=== PATIENT | male | born 1940 | race Caucasian/White ===

== ENCOUNTER → 2024-10-22 | Outpatient (CLI) | payer MEDICARE, SELFPAY ==
--- NOTE | 2024-10-22 08:45 | AAVD_ITS ---
Reason For Study Reason For Study: ILIAC ARTERY ANEURYSM Aorta Measurements Aorta Doppler Measurements Proximal aorta measures2.13 x 2.09cm. in cross-sectional Peak systolic flow velocities within the proximal aorta axis. measure 128.5 cm/sec. Proximal aorta measures2.12cm. in longitudinal axis. Peak systolic flow velocities within the mid aorta measure Mid aorta measures2.34 x 2.62cm. in cross-sectional axis. 81.4 cm/sec. Mid aorta measures2.34cm. in longitudinal axis. Peak systolic flow velocities within the distal aorta Distal aorta measures3.05 x 3.19cm. in cross-sectional axis.measure 77.2 cm/sec. Distal aorta measures3.3cm. in longitudinal axis. Left Iliac Artery Left iliac artery measures 1.31 cm. in the longitudinal axis. Peak systolic velocity in the left iliac artery measures 112.2 cm/sec. Left iliac artery measures 1.52 x 1.17 cm. in the cross-sectional axis. Right Iliac Artery Right iliac artery measures 1.40 cm. in the longitudinal axis. Right iliac artery measures 1.20 x 1.07 cm. in the cross- sectional axis. Peak systolic velocity in the right iliac artery measures 114.0 cm/sec. Procedure Aorta IVC Iliac vasculature or bypass grafts 47345. Technically difficult study. Exam performed in department. 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 Left iliac artery patent, 1.52 cm ectasia present Ordering Physician: Leslie Rabago Referring Physician: Leslie Rabago Performed By: Elsa Jefferson, JUDY, RVT
--- OUTSIDE RECORDS SUMMARY | 2024-10-22 10:30 | XMS RPT_ITS | CCD ---
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 Name Role Phone Free, Text Entry Unavailable Unavailable Olivier Sutton Unavailable BILL CADE MD Primary Care Unavailable LATOUF, BILL TALLEY Admitting Unavailable LATOUF, BILL TALLEY Attending Unavailable LATOUF, BILL TALLEY Consulting Unavailable PROVIDER, UNKNOWN Consulting Unavailable PROVIDER, UNKNOWN Consulting Unavailable PROVIDER, UNKNOWN Consulting Unavailable LATOUF, BILL TALLEY Primary Care Unavailable LATOUF, BILL TALLEY Admitting Unavailable LATOUF, BILL TALLEY Attending Unavailable LATOUF, BILL TALLEY Consulting Unavailable PROVIDER, UNKNOWN Consulting Unavailable PROVIDER, UNKNOWN Consulting Unavailable PROVIDER, UNKNOWN Consulting Unavailable LATOUF, BILL TALLEY Primary Care Unavailable LATOUF, BILL TALLEY Admitting Unavailable LATOUF, BILL TALLEY Attending Unavailable LATOUF, BILL TALLEY Consulting Unavailable PROVIDER, UNKNOWN Consulting Unavailable PROVIDER, UNKNOWN Consulting Unavailable PROVIDER, UNKNOWN Consulting Unavailable LATOUF, BILL TALLEY Primary Care Unavailable LATOUF, BILL TALLEY Admitting Unavailable LATOUF, BILL TALLEY Attending Unavailable LATOUF, BILL TALLEY Consulting Unavailable PROVIDER, UNKNOWN Consulting Unavailable PROVIDER, UNKNOWN Consulting Unavailable PROVIDER, UNKNOWN Consulting Unavailable LATOUPayam, BILL TALLEY Consulting Unavailable LATOUF, BILL TALLEY Primary Care Unavailable LATOUF, BILL TALLEY Admitting Unavailable LATOUF, BILL TALLEY Attending Unavailable PROVIDER, UNKNOWN Consulting Unavailable PROVIDER, UNKNOWN Consulting Unavailable PROVIDER, UNKNOWN Consulting Unavailable Leslie Rabago Attending Unavailable Valente, Jaquan Chi Primary Care Unavailable Valente, Jaquan Chi Referring Unavailable Gem Leslie Referring Unavailable NOT, DEFINED Primary Care Unavailable Leslie Rabago Attending Unavailable Medications Current Medications Medication Drug Class(es) Dates Sig (Normalized) Sig (Original) amoxicillin 875 mg / clavulanate 125 mg oral tablet (1 source) Penicillin-class Antibacterial Start: 04-10-2021 End: 04-19-2021 take 1 tablet by mouth twice daily at mealtime amoxicillin-clavu lanate 875 mg-125 mg oral tablet ; 875 milligram(s) orally 2 times a day Quantity: 20 Refills: 0 Ordered: 10-Apr-2021 Olivier Sutton Start: 10-Apr-2021 End: 19-Apr-2021 Generic Substitution Allowed Comments: Finish all this medication unless otherwise directed by prescriber.Take with food or milk. Comment on above: Finish all this medi cation unless otherwise directed by prescriber.Take with food or milk. benzonatate 100 mg oral capsule (1 source) Non-narcotic Antitussive Start: 04-10-2021 End: 04-19-2021 take 1 capsule by mouth three times daily benzonatate 100 mg oral capsule ; 1 cap(s) orally 3 times a day Quantity: 30 Refills: 0 Ordered: 10-Apr-2021 Olivier Sutton Start: 10-Apr-2021 End: 19-Apr-2021 Generic Substitution Allowed Comments: May cause drowsiness. Alcohol may intensify this effect. Use care when operating dangerous machinery.Swallow whole. Do not crush. Comment on above: May cause drowsiness . Alcohol may intensify this effect. Use care when operating dangerous machinery.Swallow whole. Do not crush. docusate sodium 100 mg oral capsule (1 source) docusate potassium 100 mg oral capsule Quantity: 0 Refills: 0 Ordered: 10-Apr-2021 Galdino, Susan Generic Substitution Allowed lisinopril 10 mg oral tablet (1 source) Angiotensin Converting Enzyme Inhibitor take 1 tablet by mouth once daily lisinopril 10 mg oral tablet ; 1 tab(s) orally once a day Quantity: 0 Refills: 0 Ordered: 10-Apr-2021 Galdino, Susan Generic Substitution Allowed loratadine 10 mg oral tablet (1 source) take 1 tablet by mouth once daily loratadine 10 mg oral tablet ; tab(s) orally once a day Quantity: 0 Refills: 0 Ordered: 10-Apr-2021 Galdino, Susan Generic Substitution Allowed 24 hr NIFEdipine 60 mg extended release oral tablet (1 source) Dihydropyridine Calcium Channel Steve take 1 tablet by mouth once daily NIFEdipine 60 mg oral tablet, extended release ; 1 tab(s) orally once a day Quantity: 0 Refills: 0 Ordered: 10-Apr-2021 Galdino, Susan Generic Substitution Allowed pantoprazole 20 mg delayed release oral tablet (1 source) Proton Pump Inhibitor take 1 tablet by mouth once daily pantoprazole 20 mg oral delayed release tablet ; 1 tab(s) orally once a day Quantity: 0 Refills: 0 Ordered: 10-Apr-2021 Susan Ahmadi Generic Substitution Allowed pravastatin sodium 40 mg oral tablet (1 source) HMG-CoA Reductase Inhibitor take 1 tablet by mouth once daily pravastatin 40 mg oral tablet ; 1 tab(s) orally once a day Quantity: 0 Refills: 0 Ordered: 10-Apr-2021 Susan Ahmadi Generic Substitution Allowed Problems Active Problems Problem Classification Problem Date Documented Da te Episodic/Chronic Anxiety disorders (1 source) Anxiety disorder, unspecified; Translations: [Anxiety disorder, unspecified] Onset: 12-01-2023 Chronic Aortic; peripheral; and visceral artery aneurysms (1 source) Aneurysm of iliac artery; 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] Onset: 10-16-2024 Chronic Asthma (1 source) Unspecified asthma, uncomplicated; Translations: [Unspecified asthma, uncomplicated] Onset: 12-01-2023 Chronic Chronic kidney disease (1 source) Chronic kidney disease; Translations: [Chronic kidney disease, stage 3a] Onset: 09-09-2024 Diabetes mellitus without complication (4 sources) Hyperglycemia, unspecified; Translations: [Hyperglycemia, unspecified] Onset: 05-27-2024 Episodic Diseases of white blood cells (3 sources) Elevated white blood cell count, unspecified; Translations: [Elevated white blood cell count, unspecified] Onset: 12-01-2023 Chronic Disorders of lipid metabolism (1 source) Pure hypercholesterolemi a, unspecified; Translations: [Pure hypercholesterolemi a, unspecified] Onset: 09-09-2024 Chronic Essential hypertension (4 sources) Essential (primary) hypertension; Translations: [Essential (primary) hypertension] Onset: 12-01-2023 Chronic Other hereditary and degenerative nervous system conditions (1 source) Essential tremor; Translations: [Essential tremor] Onset: 12-01-2023 Chronic Other lower respiratory disease (2 sources) Cough 04-10-2021 Episodic Comment on above: COUGH Other upper respiratory infections (2 sources) Acute upper respiratory infection; Translations: [Acute upper respiratory infections of unspecified site] 04-10-2021 Episodic Past or Other Problems Problem Classification Problem Date Documented Da te Episodic/Chronic Genitourinary symptoms and ill-defined conditions (1 source) Nocturia; Translations: [Nocturia] Onset: 12-01-2023 Episodic Results Test Name Value Interpretation Reference Range Facil ity BMP with eGFRon 08-16-2024 AGE 84 years Normal [facility] Comment on above: Performed By: #### 2 [id number] #### [facility],[address] [place] [address] 49529 Anion gap [Moles/Vol] 11 mmol/L Normal 10 - 20 [facility] Comment on above: Performed By: #### 2 [id number] #### [facility],[address] [place] [address] 72083 BMP with eGFR Normal [facility] Comment on above: Result Comment: BASI C METABOLIC PANEL Performed By: #### 2 [id number] #### [facility],[address] [place] [address] 74542 Calcium [Mass/Vol] 9.0 mg/dL Normal 8.5 - 10.1 [facility] Comment on above: Performed By: #### 2 75539 #### [facility],[address] [place] [address] 32529 Chloride [Moles/Vol] 108 mmol/L High 98 - 107 [facility] Comment on above: Performed By: #### 2 52062 #### [facility],[address] [place] [address] 03983 CO2 [Moles/Vol] 30.3 mmol/L Normal 21.0 - 32.0 [facility] Comment on above: Performed By: #### 2 47892 #### [facility],[address] [place] [address] 03184 Creatinine [Mass/Vol] 1.33 mg/dL High 0.70 - 1.30 [facility] Comment on above: Performed By: #### 2 18588 #### [facility],[address] [place] [address] 13749 eGFR 51 ML/MINUTE Low 60 - 999 [facility] Comment on above: Performed By: #### 2 08363 #### [facility],[address] [place] [address] 40442 GFR/1.73 sq M.predicted among non-blacks MDRD (S/P/Bld) [Vol rate/Area] mL/min/{1.73_m2} Normal 60 - 999 [facility] Comment on above: Result Comment: ACCO RDING TO THE NATIONAL KIDNEY DISEASE EDUCATION PROGRAM(NKDE), A NORMAL eGFR IS A VALUE GREATER THAN OR EQUAL TO 60 ML/MIN/1.73 SQ METERS. CHRONIC KIDNEY DISEASE: <60mL/MIN/1.73 SQ METERS KIDNEY FAILURE: <15mL/MIN/1.73 SQ METERS THIS TEST SHOULD ONLY BE USED FOR PATIENTS 18 YEARS OF AGE AND OLDER. Performed By: #### 2 53632 #### [facility],[address] [place] [address] 62643 Glucose [Mass/Vol] 99 mg/dL Normal 74 - 106 [facility] Comment on above: Performed By: #### 2 18256 #### [facility],[address] [place] [address] 36550 Potassium [Moles/Vol] 4.2 mmol/L Normal 3.5 - 5.1 [facility] Comment on above: Performed By: #### 2 12736 #### [facility],[address] [place] [address] 30872 Sodium [Moles/Vol] 145 mmol/L Normal 136 - 145 [facility] Comment on above: Performed By: #### 2 02349 #### [facility],[address] [place] [address] 69720 Urea nitrogen [Mass/Vol] 21 mg/dL High 7 - 18 [facility] Comment on above: Performed By: #### 2 45986 #### [facility],[address] [place] [address] 95320 HEMOGLOBIN A1C (POM)on 08-16 Glucose [Mass/Vol] 119.8 mg/dL High 0.0 - 0.0 [facility] Comment on above: Result Comment: BLDo HEMOGLOBIN A1C REFERENCE RANGESBLDo Suggested Diagnosis HbA1c(%) HbA1C (mmol/mol Diabetic >/=6.5 >/=48 Prediabetes 5.7 - 6.4 39 - 47 Normal <5.7 <39 Performed By: #### 2 78965 #### [facility],[address] [place] [address] HbA1c (Bld) [Mass fraction] 5.8 % Normal 0.0 - 6.5 [facility] Comment on above: Performed By: #### 2 24561 #### [facility],[address] [place] [address] CBC + DIFFon 05-27-2024 Baso # 0.03 x10EE3/UL Normal 0.00 - 0.10 [facility] Comment on above: Performed By: #### 2 02698 #### [facility],[address] [place] [address] Basophils/100 WBC (Bld) 0.3 % Normal 0.0 - 2.0 [facility] Comment on above: Performed By: #### 2 16143 #### [facility],[address] [place] [address] CBC + DIFF Normal [facility] Comment on above: Result Comment: CBC- COMPLETE BLOOD COUNT Performed By: #### 2 22762 #### [facility],[address] [place] [address] EO # 0.81 x10EE3/UL High 0.00 - 0.50 [facility] Comment on above: Performed By: #### 2 70413 #### [facility],[address] [place] [address] 58744 Eosinophils/100 WBC (Bld) 8.9 % High 0.0 - 7.0 [facility] Comment on above: Performed By: #### 2 31376 #### [facility],[address] [place], [place] [address] Erythrocyte distribution width (RBC) [Ratio] 13.1 % Normal 12.0 - 15.6 [facility] Comment on above: Performed By: #### 2 71280 #### [facility],[address] [place] [address] Hematocrit (Bld) [Volume fraction] 50.7 % Normal 40.0 - 52.0 [facility] Comment on above: Performed By: #### 2 76136 #### [facility],[address] [place] [address] Hemoglobin (Bld) [Mass/Vol] 17.1 g/dL Normal 13.0 - 17.5 [facility] Comment on above: Performed By: #### 2 85780 #### [facility],[address] [place] [address] Lymph # 3.79 x10EE3/UL High 0.80 - 2.80 [facility] Comment on above: Performed By: #### 2 79124 #### [facility],[address] [place], [place] [address] Lymphocytes/100 WBC (Bld) 41.4 % Normal 20.0 - 45.0 [facility] Comment on above: Performed By: #### 2 90976 #### [facility],[address] [place], [place] [id number] MANUAL DIFF N/A Normal [facility] Comment on above: Performed By: #### 2 81872 #### [facility],[address] [place] [address] 20242 MCH (RBC) [Entitic mass] 32 pg Normal 27 - 33 [facility] Comment on above: Performed By: #### 2 06532 #### [facility],[address] [place] [address] 57242 MCHC 34 X10 3 Normal 32 - 36 [facility] Comment on above: Performed By: #### 2 56487 #### [facility],[address] [place] [address] 26317 MCV (RBC) [Entitic vol] 94 fL Normal 81 - 98 [facility] Comment on above: Performed By: #### 2 88605 #### [facility],[address] [place] [address] 40452 Ida # 0.86 x10EE3/UL Normal 0.20 - 1.00 [facility] Comment on above: Performed By: #### 2 24866 #### [facility],[address] [place] [address] 10125 MONOS % 9.4 % Normal 0.0 - 10.0 [facility] Comment on above: Performed By: #### 2 62830 #### [facility],[address] [place] [address] 02136 Morphology Alvaro (Bld) [Interp] N/A Normal [facility] Comment on above: Performed By: #### 2 04437 #### [facility],[address] [place] [address] 45241 Neut # 3.66 x10EE3/UL Normal 1.50 - 7.10 [facility] Comment on above: Performed By: #### 2 54284 #### [facility],[address] [place] [address] 63384 Neutrophils/100 WBC (Bld) 40.0 % Low 46.0 - 76.0 [facility] Comment on above: Performed By: #### 2 94819 #### [facility],[address] [place] [address] 29421 PLATELET 314 x10EE3/UL Normal 150 - 450 [facility] Comment on above: Performed By: #### 2 28148 #### [facility],[address] [place] [address] 61765 Platelet mean volume (Bld) [Entitic vol] 8.0 fL Normal 6.4 - 10.5 [facility] Comment on above: Result Comment: AUTO MATED DIFFERENTIAL Performed By: #### 2 26229 #### [facility],[address] [place] [address] 40082 RBC 5.38 x 10EE6/UL Normal 4.50 - 6.[address] [facility] Comment on above: Performed By: #### 2 31948 #### [facility],[address] [place] [address] 97846 WBC 9.2 x 10EE3/UL Normal 4.5 - 10.8 [facility] Comment on above: Performed By: #### 2 43293 #### [facility],[address] [place] [address] 86003 CMP with eGFRon 05-27-2024 AGE 83 years Normal [facility] Comment on above: Performed By: #### 2 64811 #### [facility],[address] [place] [address] 63811 Albumin [Mass/Vol] 3.7 g/dL Normal 3.4 - 5.0 [facility] Comment on above: Performed By: #### 2 57785 #### [facility],[address] [place] [address] 92504 Albumin/Globulin [Mass ratio] 1.0 {ratio} Normal 0.9 - 1.6 [facility] Comment on above: Performed By: #### 2 69147 #### [facility],[address] [place] [address] 29859 ALK PHOS 68 U/L Normal 46 - 116 [facility] Comment on above: Performed By: #### 2 88788 #### [facility],[address] [place] [address] 54711 ALT [Catalytic activity/Vol] 24 U/L Normal 16 - 63 [facility] Comment on above: Performed By: #### 2 02271 #### [facility],[address] [place] [address] 17388 Anion gap [Moles/Vol] 12 mmol/L Normal 10 - 20 [facility] Comment on above: Performed By: #### 2 30123 #### [facility],[address] [place] [address] 82798 AST [Catalytic activity/Vol] 23 U/L Normal 15 - 37 [facility] Comment on above: Performed By: #### 2 70864 #### [facility],[address] [place] [address] 98623 B/C RATIO 14 ratio Normal 0 - 30 [facility] Comment on above: Performed By: #### 2 69714 #### [facility],[address] [place] [address] 17359 Bilirubin [Mass/Vol] 0.5 mg/dL Normal 0.2 - 1.0 [facility] Comment on above: Performed By: #### 2 20026 #### [facility],[address] [place] [address] 27073 Calcium [Mass/Vol] 9.3 mg/dL Normal 8.5 - 10.1 [facility] Comment on above: Performed By: #### 2 46021 #### [facility],[address] [place] [address] 72474 Chloride [Moles/Vol] 106 mmol/L Normal 98 - 107 [facility] Comment on above: Performed By: #### 2 36373 #### [facility],[address] [place] [address] 32209 CMP with eGFR Normal [facility] Comment on above: Result Comment: COMP REHENSIVE METABOLIC PANEL Performed By: #### 2 72679 #### [facility],[address] [place] [address] 17302 CO2 [Moles/Vol] 30.7 mmol/L Normal 21.0 - 32.0 [facility] Comment on above: Performed By: #### 2 73698 #### [facility],[address] [place] [address] 77663 Creatinine [Mass/Vol] 1.20 mg/dL Normal 0.70 - 1.30 [facility] Comment on above: Performed By: #### 2 70364 #### [facility],[address] [place] [address] 63454 eGFR 58 ML/MINUTE Low 60 - 999 [facility] Comment on above: Performed By: #### 2 68974 #### [facility],[address] [place] [address] 66788 GFR/1.73 sq M.predicted among non-blacks MDRD (S/P/Bld) [Vol rate/Area] mL/min/{1.73_m2} Normal 60 - 999 [facility] Comment on above: Result Comment: ACCO RDING TO THE NATIONAL KIDNEY DISEASE EDUCATION PROGRAM(NKDE), A NORMAL eGFR IS A VALUE GREATER THAN OR EQUAL TO 60 ML/MIN/1.73 SQ METERS. CHRONIC KIDNEY DISEASE: <60mL/MIN/1.73 SQ METERS KIDNEY FAILURE: <15mL/MIN/1.73 SQ METERS THIS TEST SHOULD ONLY BE USED FOR PATIENTS 18 YEARS OF AGE AND OLDER. Performed By: #### 2 11532 #### [facility],[address] [place] [address] 39520 Globulin (S) [Mass/Vol] 3.7 g/dL Normal 1.5 - 3.8 [facility] Comment on above: Performed By: #### 2 08095 #### [facility],[address] [place] [address] 79571 Glucose [Mass/Vol] 120 mg/dL High 74 - 106 [facility] Comment on above: Performed By: #### 2 80829 #### [facility],[address] [place] [address] 50744 Potassium [Moles/Vol] 3.7 mmol/L Normal 3.5 - 5.1 [facility] Comment on above: Performed By: #### 2 53583 #### [address] [address] Protein [Mass/Vol] 7.4 g/dL Normal 6.4 - 8.2 [facility] Comment on above: Performed By: #### 2 12864 #### [facility],[address] [place], [place] [phone] Sodium [Moles/Vol] 145 mmol/L Normal 136 - 145 [facility] Comment on above: Performed By: #### 2 62223 #### [facility],[address] [place] [address] Urea nitrogen [Mass/Vol] 17 mg/dL Normal 7 - 18 [facility] Comment on above: Performed By: #### 2 21629 #### [facility],[address] [place] [address] HEMOGLOBIN A1C (POM)on 05-27 Glucose [Mass/Vol] 137.0 mg/dL High 0.0 - 0.0 [facility] Comment on above: Result Comment: Do HEMOGLOBIN A1C REFERENCE RANGESBLDo Suggested Diagnosis HbA1c(%) HbA1C (mmol/mol Diabetic >/=6.5 >/=48 Prediabetes 5.7 - 6.4 39 - 47 Normal <5.7 <39 Performed By: #### 2 56086 #### [facility],[address] [place] [address] HbA1c (Bld) [Mass fraction] 6.4 % Normal 0.0 - 6.5 [facility] Comment on above: Performed By: #### 2 56922 #### [facility],[address] [place], [place] [phone] LIPID PROFILEon 05-27-2024 Cholesterol [Mass/Vol] 181 mg/dL Normal 0 - 240 [facility] Comment on above: Performed By: #### 2 77667 #### [facility],[address] [place], [place] [phone] Cholesterol in HDL [Mass/Vol] 49 mg/dL Normal 40 - 60 [facility] Comment on above: Performed By: #### 2 86678 #### [facility],[address] [place], [place] [phone] Cholesterol in LDL [Mass/Vol] 102 mg/dL Normal 0 - 129 [facility] Comment on above: Performed By: #### 2 54787 #### [facility],[address] [place] [address] 25190 Cholesterol.total/ Cholesterol in HDL [Mass ratio] 3.7 {ratio} Normal 0.0 - 5.0 [facility] Comment on above: Performed By: #### 2 05590 #### [facility],[address] [place] [address] 12799 Lipid 1996 panel Normal [facility] Comment on above: Result Comment: LIPI D PROFILE Performed By: #### 2 53304 #### [facility],[address] [place] [address] 06162 Triglyceride [Mass/Vol] 149 mg/dL Normal 0 - 150 [facility] Comment on above: Performed By: #### 2 99410 #### [facility],[address] [place] [address] 63762 CBC + DIFFon 12-01-2023 Baso # 0.02 x10EE3/UL Normal 0.00 - 0.10 [facility] Comment on above: Performed By: #### 2 47134 #### [facility],[address] [place] [address] 90623 Basophils/100 WBC (Bld) 0.3 % Normal 0.0 - 2.0 [facility] Comment on above: Performed By: #### 2 37555 #### [facility],[address] [place] [address] 95856 CBC + DIFF Normal [facility] Comment on above: Result Comment: CBC- COMPLETE BLOOD COUNT Performed By: #### 2 25035 #### [facility],[address] [place] [address] 18568 EO # 0.63 x10EE3/UL High 0.00 - 0.50 [facility] Comment on above: Performed By: #### 2 58610 #### [facility],[address] [place] [address] 49528 Eosinophils/100 WBC (Bld) 6.6 % Normal 0.0 - 7.0 [facility] Comment on above: Performed By: #### 2 [id number] #### [facility],[address] [place] [address] Erythrocyte distribution width (RBC) [Ratio] 12.7 % Normal 12.0 - 15.6 [facility] Comment on above: Performed By: #### 2 90580 #### [facility],[address] [place] [address] Hematocrit (Bld) [Volume fraction] 50.3 % Normal 40.0 - 52.0 [facility] Comment on above: Performed By: #### 2 71201 #### [facility],[address] [place] [address] Hemoglobin (Bld) [Mass/Vol] 17.0 g/dL Normal 13.0 - 17.5 [facility] Comment on above: Performed By: #### 2 42204 #### [facility],[address] [place], [place] [address] Lymph # 3.41 x10EE3/UL High 0.80 - 2.80 [facility] Comment on above: Performed By: #### 2 82223 #### [facility],[address] [place], [place] [address] Lymphocytes/100 WBC (Bld) 35.6 % Normal 20.0 - 45.0 [facility] Comment on above: Performed By: #### 2 03764 #### [facility],[address] [place] [address] MANUAL DIFF N/A Normal [facility] Comment on above: Performed By: #### 2 52006 #### [facility],[address] [place], [place] [address] MCH (RBC) [Entitic mass] 32 pg Normal 27 - 33 [facility] Comment on above: Performed By: #### 2 11264 #### [facility],[address] [place] [address] MCHC 34 X10 3 Normal 32 - 36 [facility] Comment on above: Performed By: #### 2 55429 #### [facility],[address] [place] [address] 51308 MCV (RBC) [Entitic vol] 93 fL Normal 81 - 98 [facility] Comment on above: Performed By: #### 2 47388 #### [facility],[address] [place] [address] 11235 Ida # 0.80 x10EE3/UL Normal 0.20 - 1.00 [facility] Comment on above: Performed By: #### 2 41128 #### [facility],[address] [place] [address] 60451 MONOS % 8.4 % Normal 0.0 - 10.0 [facility] Comment on above: Performed By: #### 2 89334 #### [facility],[address] [place] [address] 65819 Morphology Alvaro (Bld) [Interp] N/A Normal [facility] Comment on above: Performed By: #### 2 49479 #### [facility],[address] [place] [address] 57111 Neut # 4.72 x10EE3/UL Normal 1.50 - 7.10 [facility] Comment on above: Performed By: #### 2 97320 #### [facility],[address] [place] [address] 31856 Neutrophils/100 WBC (Bld) 49.2 % Normal 46.0 - 76.0 [facility] Comment on above: Performed By: #### 2 14977 #### [facility],[address] [place] [address] 55448 PLATELET 244 x10EE3/UL Normal 150 - 450 [facility] Comment on above: Performed By: #### 2 14559 #### [facility],[address] [place], [place] [address] Platelet mean volume (Bld) [Entitic vol] 8.2 fL Normal 6.4 - 10.5 [facility] Comment on above: Result Comment: AUTO MATED DIFFERENTIAL Performed By: #### 2 57695 #### [facility],[address] [place] [address] RBC 5.39 x 10EE6/UL Normal 4.50 - 6.[address] [facility] Comment on above: Performed By: #### 2 06358 #### [facility],[address] [place] [address] WBC 9.6 x 10EE3/UL Normal 4.5 - 10.8 [facility] Comment on above: Performed By: #### 2 35035 #### [facility],[address] [place], [place] [phone] GLUCOSEon 12-01-2023 Glucose [Mass/Vol] 114 mg/dL High 74 - 106 [facility] Comment on above: Performed By: #### 2 92938 #### [facility],[address] [place], [place] [phone] URINALYSIS WITH MICROSCOPYon 12-01-2023 Amorphous NONE Normal [facility] Comment on above: Performed By: #### 2 92004 #### [facility],[address] [place], [place] [phone] Bacteria NONE Normal [facility] Comment on above: Performed By: #### 2 21304 #### [facility],[address] [place], [place] [address] Bilirubin Ql (U) Negative Normal NORMAL: NEGATIVE [facility] Comment on above: Performed By: #### 2 34996 #### [facility],[address] [place], [place] [phone] Casts NONE Normal [facility] Comment on above: Performed By: #### 2 63593 #### [facility],[address] [place] [address] 72666 Clarity (U) clear Normal NORMAL: CLEAR [facility] Comment on above: Performed By: #### 2 43631 #### [facility],[address] [place] [address] 20395 Color (U) jil Normal NORMAL: YELLOW [facility] Comment on above: Performed By: #### 2 72649 #### [facility],[address] [place] [address] 95559 Crystals LM Nom (Urine sed) NONE Normal [facility] Comment on above: Performed By: #### 2 67963 #### [facility],[address] [place] [address] 99720 Epi Cells NONE Normal [facility] Comment on above: Performed By: #### 2 47554 #### [facility],[address] [place] [address] 27613 Glucose Ql (U) NORM Normal NORMAL: NORMAL [facility] Comment on above: Performed By: #### 2 04428 #### [facility],[address] [place] [address] 38218 Hemoglobin Ql (U) 25 Abnormal NORMAL: NEGATIVE [facility] Comment on above: Performed By: #### 2 01608 #### [facility],[address] [place] [address] 67919 Ketone Negative Normal NORMAL: NEGATIVE [facility] Comment on above: Performed By: #### 2 73473 #### [facility],[address] [place] [address] 95123 Leukocytes Negative Normal NORMAL: NEGATIVE [facility] Comment on above: Result Comment: URIN E MICROSCOPIC Performed By: #### 2 25842 #### [facility],[address] [place] [address] 87293 Mucous TRACE Normal [facility] Comment on above: Performed By: #### 2 62555 #### [facility],[address] [place] [address] Nitrite Ql (U) Negative Normal NORMAL: NEGATIVE [facility] Comment on above: Performed By: #### 2 97241 #### [facility],[address] [place] [address] pH (U) 6 [pH] Normal NORMAL: 5.0-8.0 [facility] Comment on above: Performed By: #### 2 39684 #### [facility],[address] [place] [address] Protein Ql (U) 15 Abnormal NORMAL: NEGATIVE [facility] Comment on above: Performed By: #### 2 95473 #### [facility],[address] [place] [address] Rbc 0-5 Normal 0-3 / hpf [facility] Comment on above: Performed By: #### 2 81254 #### [facility],[address] [place] [address] Sp [place] 1.015 Normal NORMAL: 1.010-1.030 [facility] Comment on above: Performed By: #### 2 42518 #### [facility],[address] [place] [address] Specimen Type R Normal [facility] Comment on above: Performed By: #### 2 35931 #### [facility],[address] [place] [address] URINALYSIS WITH MICROSCOPY Normal [facility] Comment on above: Result Comment: URIN ALYSIS Performed By: #### 2 43657 #### [facility],[address] [place] [address] Urobilinog NORM Normal NORMAL: NORMAL [facility] Comment on above: Performed By: #### 2 88367 #### [facility],[address] [place] [address] Wbc NONE Normal 0-5 / hpf [facility] Comment on above: Performed By: #### 2 16784 #### [facility],[address] [place] [address] [place] [address] Yeast NONE Normal [facility] Comment on above: Performed By: #### 2 03719 #### [facility],[address] [place] [address] 84499 VITAMIN D, 25 HYDROXYon 11-10 VitD 48.20 ng/mL Normal 30.00 - 100 [facility] Comment on above: Result Comment: 25-O HD3 indicates both endogenous production and supplementation. 25-OHD2 is an indicator of exogenous sources, such as diet or supplementation. Therapy is based on measurement of Total 25-OHD, with levels <20 ng/mL indicative of Vitamin D deficiency, while levels between 20 ng/mL and 30 ng/mL suggest insufficiency. Optimal levels are >=30ng/mL. Vitamin D, 25-OH D3 Not Established Vitamin D, 25-OH D2 Not Established Performed By: #### 2 72167 #### [facility],[address] [place] [address] 99401 MR/Ranjit 10-22-2023 MR/Kathleen [facility] [address] [place] [address]. [address] [place] [address] OFFICE VISIT Date of Service: 10/22/23 MR#: [id number] Acct: [id number] Name: ANASTACIO CORRIGAN Rep #: [id number] : 1940 Provider: CEASAR Rosen Age/Sex: 83/M Location: [facility] Status: Signed Intake Vital Signs 10/22/23 14:14 Weight: 211 lb BP 150/87 H Blood Pressure Location Lt brachial Position Sitting Respiration 16 Pulse 62 Pulse Source Monitor Temp 98.2 F Temp Source Temporal Pulse Oximetry (%) 96 Oxygen Delivery Method room air Intake Visit Reasons: CONSULT-ILIAC ARTERY ANEURYSM Chief Complaint: establish care Is patient in pain?: No Allergies No Known Allergies Allergy (Verified 10/22/23 14:16) Medications ???Medication ???Instructions ???Recorded ???Confirmed ???Type amlodipine 10 mg tablet 10 mg PO DAILY 10/22/23 10/22/23 History fluoxetine 20 mg tablet 20 mg PO DAILY 10/22/23 10/22/23 History fluticasone 100 mcg-salmeterol 50 1 inh inhalation BID 10/22/23 10/22/23 History mcg/dose blistr powdr for inhalation losartan 50 mg tablet 50 mg PO DAILY 10/22/23 10/22/23 History pantoprazole 20 mg tablet,delayed 20 mg PO DAILY 10/22/23 10/22/23 History release potassium chloride 10 mEq 10 meq PO DAILY 10/22/23 10/22/23 History capsule,extended release pravastatin 40 mg tablet 40 mg PO QHS 10/22/23 10/22/23 History primidone 50 mg tablet 50 mg PO ONCE 10/22/23 10/22/23 History PFSH Medical History (Updated 10/22/23 @ 18:29 by CEASAR Rosen) GERD (gastroesophageal reflux disease) Depression Anxiety Tremor, essential Reactive airway disease Hypertension Surgical History (Updated 10/22/23 @ 14:13 by Gemini Barron) Hx of tonsillectomy ( 1954) Hx of appendectomy ( 1954) Family History (Updated 10/22/23 @ 14:34 by Gemini Barron) Other Breast cancer CAD (coronary artery disease) Cancer Diabetes Social History Smoking Status: Never smoker HPI HPI HPI: ANASTACIO CORRIGAN, is a 83 M who presents to the office today for 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 He is referred by his PCP Dr. Cade. [facility] 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 He denies any back/pelvic/lower extremity pain or claudication. He denies any prior vascular surgical interventions or wounds. He has never smoked. He is diabetic and he does have significant peripheral neuropathy. He does take pravastatin and tolerates this well, previously did not tolerate high-intensity statin. He does not take ASA. He denies any history of GI bleeding, coronary intervention, COPD, VTE, CVA/TIA. He has no complaints today. ROS General General: No weight change, appetite, fatigue, colon cancer, breast cancer or weakness HEENT HEENT: No difficulty swallowing, eye injury, eye surgery, swollen glands or hoarseness Endo Endocrine: Yes diabetes mellitus; No thyroid disease, thyroid cancer, Hair loss, heat intolerance or cold intolerance Skin Skin: No rash or changing moles Musc Musculoskeletal: No back problems, arthritis, rheumatoid arthritis, gout or joint pain Cardio Cardiovascular: Yes high blood pressure and shortness of breat with exertion; No murmur, pacemaker, heart disease, atrial fibrillation, heart attack, heart stent, palpitations or chest pain Psych Psychiatric: Yes depression; No anxiety or hearing voices Resp Respiratory: No shortness of breath, No sleep apnea, No cough, No COPD, No asthma, No emphysema and No wheezing Gastro Gastrointestinal: No abdominal pain, No nausea or vomiting, Yes diarrhea, Yes constipation, No blood in stool, Yes acid reflux, No hemorrhoids, No ulcers, No gallbladder problem and No black,tarry stools Jose F Hematologic: No blood thinners, No blood disorders, No bleeding, No anemia and No blood clots Neuro Neurologic: No system reviewed and no additional complaints, except as documented, No as per HPI, No abnormal gait, No abnormal hearing, No abnormal movements, No abnormal speech, No behavioral changes, No burning sensations, Yes confusion, No convulsions, Yes disequilibrium, Yes dizziness, No localized weakness, No frequent falls, Yes headache(s), No lack of coordination, No loss of vision, No memory loss, Yes numbness, No other visual disturbances, No radicular pain, Yes restless legs, No sensory deficit, No syncope, Yes tingling, Yes tremor(s), No weakness and No other Exam Const General: cooperative, comfortable and no acute distress Orientation: alert, awake and oriented x3 HENMT Head: normal to inspection, normocephalic and atraum (more content not included)... Normal [facility] 09-18-[address] [address] Patient: ANASTACIO CORRIGAN Phone#: : 1940 Age: 83 Gender: M Pt. Type: Out Account: [id number] Location: [facility] Ordering: BILL CADE Exam Date: 09/18/2023/10:03 Family Phys: Charge Code: [id number] Physician: [place] Order #: [id number] Dose#: PROCEDURE: AORTA ULTRASOUND COMPARISON: None. INDICATIONS: Screening for Abdominal Aortic Aneursym TECHNIQUE: Ultrasound was performed of the abdominal aorta. FINDINGS: AORTA: The aorta is ectatic. Maximum diameter is 2.6 centimeters. OTHER: The iliac arteries are tortuous. Because of the ectasias is difficult to differentiate right from left iliac artery. However maximum diameter is 2.3 centimeters CONCLUSION: 1. Dilatation of common iliac artery measuring up to 2.3 centimeters. Because of ectasia is difficult to determine right from left iliac. 2. Maximum aortic diameter is 2.6 centimeters. Dictated by: Carito Maguire MD on 09/18/2023 at 11:51 Approved by: Carito Maguire MD on 09/18/2023 at 12:00 [facility] Provider Note - ED v2on 11-3 Provider Note - ED v2 Provider Note - ED v2: Chart Review: HISTORY OF PRESENTING ILLNESS ANASTACIO is a 80 year old Male and was seen by me at 10-Apr-2021 13:56. Triage Information: Most recent Vital Sign Value Date PAST MEDICAL HISTORY ATTESTATION: I have reviewed and confirmed nurse's/medic's notes for patient's medications, allergies, and medical, surgical, family and social history ALLERGIES/INTOLERANCES : No Known Allergies HEALTH HISTORY: No documented data. OUTPATIENT MEDICATIONS: Home Medications Review Status for Reconciliation: Complete Med Status: Patient Currently Takes Medications Drug Name: lisinopril 10 mg oral tablet Instructions: 1 tab(s) orally once a day Drug Name: pravastatin 40 mg oral tablet Instructions: 1 tab(s) orally once a day Drug Name: pantoprazole 20 mg oral delayed release tablet Instructions: 1 tab(s) orally once a day Drug Name: NIFEdipine 60 mg oral tablet, extended release Instructions: 1 tab(s) orally once a day Drug Name: loratadine 10 mg oral tablet Instructions: tab(s) orally once a day Drug Name: docusate potassium 100 mg oral capsule Instructions: null Drug Name: amoxicillin-clavulanat e 875 mg-125 mg oral tablet Instructions: 875 milligram(s) orally 2 times a day Drug Name: benzonatate 100 mg oral capsule Instructions: 1 cap(s) orally 3 times a day SIGNIFICANT EVENTS: No documented data. RESULTS/VITAL SIGNS VITAL SIGNS: T PRBP SpO2O2(LPM) %FiO2 Method 10-Apr-2021 14:01:[id number] MEDICAL DECISION MAKING/ED COURSE MDM/ED COURSE: This note was generated with voice recognition software and may contain errors including spelling, grammar, syntax, and misrecognization of what was dictated Chief Complaint Congestion History of Present Illness Patient presents with a 2-month history of some chest congestion. His doctors have evaluated him and determined it is not in his lungs and suspect it is allergies. He started taking some amoxicillin that he had at home and it improved his symptoms so he presents today in the hopes of getting some antibiotics. He points to his throat as the source of his congestion. Review of Systems 10 systems reviewed negative with exception of history of present illness listed above Physical Examination General: Alert and oriented, No acute distress. Eye: Pupils are equal, round and reactive to light. HENT: Normocephalic Neck: Supple, Non-tender, No lymphadenopathy. Musculoskeletal: Normal range of motion, normal strength, no tenderness, no swelling. Integumentary: [place], warm, dry, and Intact. Neurologic: Alert, Oriented, Normal sensory, Normal motor function. Cognition and Speech: Oriented, Speech clear and coherent. Psychiatric: Cooperative, Appropriate mood & affect. Impression and Plan Course: Worsening Plan: Patient will be discharged home with oral antibiotics, instructed to use appropriate over the counter medications for symptom management, and is instructed to follow-up with their primary care provider in 3-5 days for any increase in severity of symptoms or any additional concerns. Patient agrees with plan of care, questions were encouraged and answered. Patient Instructions: Upper respiratory infection CLINICAL IMPRESSION Diagnosis/Annotation: ED Dx Name:Acute upper respiratory infection Code:J06.9 Disposition: discharged Type: home ATTESTATION CRITICAL CARE TIME Is this a critically ill patient: no Electronic Signatures: Olivier Sutton (CONTINUOUS STILL OPERATOR-TOP INVENTORY CONTROL EXECUTIVE) (Signed 10-Apr-2021 14:16) Authored: HPI, PMH, PE, Results/Vital Signs, MDM/ED Course, Clinical Impression, Attestation, Chart Review, Scores Last Updated: 10-Apr-2021 14:16 by Olivier Sutton (CONTINUOUS STILL OPERATOR-TOP INVENTORY CONTROL EXECUTIVE) [facility] Vital Signs Date Time Vital Sign Value Performing Clinician Lee Ann macias 04-10-2021 16:01-0500 Body height 185.4 cm Text Entry Free [facility] 04-10-2021 16:01-0500 Body temperature 98.6 [degF] Text Entry Free [facility] 04-10-2021 16:01-0500 Diastolic blood pressure 108 mm[Hg] Text Entry Free [facility] 04-10-2021 16:01-0500 Heart rate 66 /min Text Entry Free [facility] 04-10-2021 16:01-0500 Respiratory rate 16 /min Text Entry Free [facility] 04-10-2021 16:01-0500 SaO2% (BldA) [Mass fraction] 97 % Text Entry Free [facility] 04-10-2021 16:01-0500 Systolic blood pressure 206 mm[Hg] Text Entry Free [facility] Encounters Encounter Date Encounter Type Care Provider Facility Start: 10-22-2024 ambulatory [facility] Facility:[facility] Start: 09-09-[address] [facility] [facility] Start: 08-16-2024 End: 08-16-2024 ambulatory BILL [facility] Start: 05-27-2024 End: 05-27-2024 [facility] Start: 12-01-2023 End: 12-01-[address] [facility] [place] [facility] Start: 10-22-2023 End: 10-22-2023 ambulatory Leslie Rabago Facility:[facility] Start: 09-18-2023 End: 09-18-[address] [facility] Start: 04-10-2021 End: 04-10-2021 Emergency department patient visit Olivier Sutton [facility] Payers Date Payer Category Payer Medicaid [id number] 2023 Self-pay 2021 Medicare [id number] 1940 Unknown [id number] 1940 Unknown [id number] 1940 Unknown [id number] 1940 Unknown [id number] 1940 Unknown [id number] Unknown [employer] CHOICE Unknown [id number] Unknown [id number] Social History Date Type Detail Facility [facility] Tobacco smoking consumption unknown [facility] Summary Purpose Family History No Family History Records FoundNo Family History Records FoundNo Family History Records Found Advance Directives No Advanced Directives Records FoundNo Advanced Directives Records FoundNo Advanced Directives Records Found Additional Source Comments <item> Privacy Markings (unrecogniz ed section and content) Section Author: iLsa Larios PROHIBITION ON REDISCLOSURE OF CONFIDENTIAL INFORMATION This notice accompanies a disclosure of information concerning a client made to you with the consent of such client. (unrecognized sect ion and content) No Status Records FoundNo Status Records FoundNo Status Records Found INFORMATION SOURCE (unrecogn ized section and content) DATE CREATED AUTHOR 04/14/2021 [facility] DATE CREATED AUTHOR AUTHOR'S ORGANIZ ATION 09/14/2024 [facility] DATE CREATED AUTHOR AUTHOR'S ORGANIZ ATION 10/17/2024 [facility] FOR RECORDS PERTAINING TO PATIENTS WHO ARE OR HAVE BEEN ENROLLED IN A CHEMICAL DEPENDENCY/SUBSTANCEABUSE PROGRAM, SOME INFORMATION MAY BE OMITTED. This clinical summary was aggregated from multiple sources. Caution should be exercised in using it in the provision of clinical care. This summary normalizes information from multiple sources, and as a consequence, information in this document may materially change the coding, format and clinical context of patient data. In addition, data may be omitted in some cases. CLINICAL DECISIONS SHOULD BE BASED ON THE PRIMARY CLINICAL RECORDS. [employer] provides no warranty or guarantee of the accuracy or completeness of information in this document.
== END | disposition home or self-care (01) ==
LOC: CVS 08:42
PROVIDERS: Referring Provider Physician Assistant; Visit Provider Physician Assistant
DX: I72.3 Aneurysm of iliac artery (principal)
CPT/HCPCS: 93978

== ENCOUNTER → 2025-02-09 | Outpatient (CLI) | payer MEDICARE, SELFPAY ==
--- NOTE | 2025-02-09 18:14 | CT_ITS ---
PROCEDURE: CHEST WITHOUT CONTRAST 02/09/2025 REASON FOR EXAM: MYASTHENIA GRAVIS TECHNIQUE: Chest CT without contrast. Coronal and Sagittal reconstruction series were provided. One or more dose reduction techniques were used (e.g., Automated exposure control, adjustment of the mA and/or kV according to patient size, use of iterative reconstruction technique RADIATION DOSE SUMMARY: CTDlvol: 13.5 mGy DLP: 489 mGycm FINDINGS: Hardware: None Thyroid: In the left thyroid there is a 3.2 by 2.2 cm hypodense nodule in the inferior pole. Lymph nodes: There are a few shotty lymph nodes seen within the mediastinum. No superior mediastinal mass identified. Heart and Vasculature: Mild cardiomegaly with trace amount of pericardial effusion. There is dilatation of the pulmonary arterial trunk measuring up to 3.5 cm. Atherosclerotic aorta demonstrated without aneurysmal dilatation. Coronary Artery Calcifications: Present Lungs and Airways: In the right upper lobe in the periphery is a slightly spiculated nodule measuring 1.1 x 0.8 cm best seen on image number 38 series 4. At the base of the right lower lobe near the periphery is a 2 mm pulmonary nodule best seen on image number 107. Pleura: Unremarkable. Upper Abdomen: There is left adrenal nodules measuring up to 1.7 cm with low- density 1 Hounsfield unit on noncontrast exam. Speckled calcifications demonstrated within the spleen and a few in the dome of the right liver. Bones: Degenerative changes demonstrated within the bones with spur formation. CT/Chest without Contrast IMPRESSION: No superior mediastinal mass identified. There is however a low-density nodule in the inferior pole of the left thyroid measuring up to 3.2 cm. Recommend further workup with ultrasound of the thyroi d. Suspicious spiculated pulmonary nodule in the right upper lobe measuring up to 1.1 cm. Recommend further workup with PET-CT or CT-guided biopsy. Small nonspecific 2 mm pulmonary nodule is seen at the base of the right lower lobe. Left adrenal nodule likely an adrenal adenoma. Reading Location: [place] [id number]
== END | disposition home or self-care (01) ==
PROVIDERS: PCP Internal Medicine
DX: G70.00 Myasthenia gravis without (acute) exacerbation (principal)
CPT/HCPCS: 71250

== ENCOUNTER 2025-03-18 07:41 | Outpatient (CLI) | payer OTHER, SELFPAY ==
[2025-03-18] VITALS (20 sets, daily range): BP systolic 138–187; BP diastolic 59–85; PULSE 51–61; RESP 11–22; TEMP 36.4; O2SAT 93–100; BMI 27.0
--- NOTE | 2025-03-18 | ASPIGT_PTH ---
PATIENT: ANASTACIO CORRIGAN LOC: [place] U#:[id number] AGE/SX: 84/M ROOM: RE03/18/[address]: Chelsy Enriquez NP : 1940 BED: DIS: 03/18/2025 SPEC #: [id number] RECD: 03/18/25 10:58 STATUS: PIETER REFrancisco Javier #: [id number] ANTONINO: 03/18/25 00:[address]: Chelsy Enriquez NP DEPT: SURGICAL PATHOLOGY RECD BY: Yakov Kaba Tissues: Lung, NOS Procedures: FNA Specimen Adequacy Immunohistochemical Stains Special Stain Group II Surgery Specimen Level IV Imprint (control) IHC Stain ADDITIONAL HEADER OPERATION: CT guided right upper lobe lung biopsy PRE-OP DIAGNOSIS: Right upper lobe lung nodule TISSUE SUBMITTED: A- Lung biopsy MICROSCOPIC DIAGNOSIS A. Right upper lung, CT-guided core biopsy: - Atypical epithelial proliferation suspicious for adenocarcinoma - see Comment. - Stromal changes consistent with fibroelastotic scar. - IHC positive for pankeratin, CK7, Napsin A, and TTF-1, supports the histologic impression. COMMENT The specimen is evaluated at the time of biopsy by Dr. Sanchez. Immediate Evaluation = 1. Adequate. 2. Few cells, bloody Selected slides/images were reviewed in intradepartmental consultation by Dr Maddy Francis (thoracic pathology division, [facility]). MICROSCOPIC DESCRIPTION Slides are reviewed. All matched controls reacted appropriately. These tests were developed and their performance characteristics determined by [facility]. They may not have been cleared or approved by the [place]. Food and Drug Administration. The FDA has determined that such clearance or approval is not necessary. The above immunohistochemical markers and/or special?stains have been reviewed by the Pathologist. GROSS DESCRIPTION A. Received in formalin labeled the patient's name and date of are multiple sorto tissue core fragments, <0.1 cm to 0.7 x 0.1 cm. Touch preparations are made. Entirely submitted in [address] 03/18/2025 CPT:24173,54069,13848,53753v0
--- OUTSIDE RECORDS SUMMARY | 2025-03-18 07:50 | XMS RPT_ITS | CCD ---
Author Organization [facility] Care Team Providers Care Tandem Mill Sticker Name Role Phone Free, Text Entry Unavailable Unavailable Olivier Sutton Unavailable Leslie Reynoso Attending Provider [phone] Leslie Reynoso Referring Provider [phone] NOT, DEFINED Primary Care Provider Unavailabl rebecca Victor MD, Dr. Jaquan Michael Primary Care Provider [phone] Dr. Jaquan Victor MD, Chi Referring Provider BILL FERNÁNDEZ MD Primary Care Unavailable BILL FERNÁNDEZ MD Consulting Unavailable BILL FERNÁNDEZ MD Attending Unavailable BILL FERNÁNDEZ MD Admitting Unavailable PROVIDER, UNKNOWN Consulting Unavailable PROVIDER, UNKNOWN Consulting Unavailable PROVIDER, UNKNOWN Consulting Unavailable LATBILL SHAW MD Admitting Unavailable BILL FERNÁNDEZ MD Primary Care Unavailable BILL FERNÁNDEZ MD Consulting Unavailable LATBILL SHAW MD Attending Unavailable PROVIDER, UNKNOWN Consulting Unavailable PROVIDER, UNKNOWN Consulting Unavailable PROVIDER, UNKNOWN Consulting Unavailable JUDAugust APPLIANCE LINE ASSEMBLER Consulting Unavailable LYLA SOLANO MD Admitting Unavailable LYLA SOLANO MD Primary Care Unavailable LYLA SOLANO MD Attending Unavailable PROVIDER, UNKNOWN Consulting Unavailable PROVIDER, UNKNOWN Consulting Unavailable BILL FERNÁNDEZ MD Primary Care Unavailable BILL FERNÁNDEZ MD Consulting Unavailable BILL FERNÁNDEZ MD Attending Unavailable BILL FERNÁNDEZ MD Admitting Unavailable PROVIDER, UNKNOWN Consulting Unavailable PROVIDER, UNKNOWN Consulting Unavailable PROVIDER, UNKNOWN Consulting Unavailable August APPLIANCE LINE ASSEMBLER Admitting Unavailable JUDAugust APPLIANCE LINE ASSEMBLER Primary Care Unavailable JUDAugust APPLIANCE LINE ASSEMBLER Consulting Unavailable JUDAugust APPLIANCE LINE ASSEMBLER Attending Unavailable PROVIDER, UNKNOWN Consulting Unavailable PROVIDER, UNKNOWN Consulting Unavailable Leslie Reynoso Attending Physician NOT, DEFINED Primary Care Physician Unavailab shanae Victor MD, Dr. Jaquan Michael Primary Care Physician Dr. Álvaro Mendiola MD Attending Physician [phone] FLAVIO LARA Attending Physician FLAVIO LARA Referring Provider Dr. Bill Fernández MD Primary Care Physician Latouf, Butros Primary Care Unavailable Seffens, Chelsy Attending Unavailable Latouf, Butros Primary Care Unavailable Seffens, Chelsy Attending Unavailable Seffens, Chelsy Referring Unavailable Latouf, Butros Primary Care Unavailable CONGOLESE, ELISA Attending Unavailable CONGOLESE, ELISA Referring Unavailable Latouf, Butros Primary Care Unavailable Seffens, Chelsy Attending Unavailable Seffens, Chelsy Referring Unavailable Rabago, Leslie Referring Unavailable Valente, Jaquan Chi Primary Care Unavailable Álvaro Mendiola Attending Unavailable CONGOLESE, ELISA Referring Unavailable Latouf, Butros Primary Care Unavailable CONGOLESE, ELISA Attending Unavailable Rabago, Leslie Attending Unavailable Valente, Jaquan Chi Primary Care Unavailable Valente, Jaquan Chi Referring Unavailable NOT, DEFINED Primary Care Unavailable Rabago, Leslie Attending Unavailable Rabago, Leslie Referring Unavailable Medications Current Medications Medication Drug Class(es) Dates Sig (Normalized) Sig (Original) amLODIPine 10 mg oral tablet (3 sources) Dihydropyridine Calcium Channel Steve Start: 10-22-2023 take 1 tablet by mouth once daily amoxicillin 875 mg / clavulanate 125 mg oral tablet (1 source) Penicillin-class Antibacterial Start: 04-10-2021 End: 04-19-2021 take 1 tablet by mouth twice daily at mealtime amoxicillin-clavul anate 875 mg-125 mg oral tablet ; 875 [...] day Quantity: 30 Refills: 0 Ordered: 10-Apr-2021 Olivire Sutton Start: 10-Apr-2021 End: 19-Apr-2021 Generic Substitution Allowed Comments: May cause drowsiness. Alcohol may intensify this effect. Use care when operating dangerous machinery.Swallow whole. Do not crush. Comment on above: May cause drowsiness . Alcohol may intensify this effect. Use care when operating dangerous machinery.Swallow whole. Do not crush. docusate sodium 100 mg oral capsule (1 source) docusate potassi um 100 mg oral capsule Quantity: 0 Refills: 0 Ordered: 10-Apr-2021 Susan Ahmadi Generic Substitution Allowed FLUoxetine 20 mg oral tablet (3 sources) Serotonin Reuptake Inhibitor Start: 10-22-2023 take 1 tablet by mouth once daily Fluticasone Propion-Salmetero l (3 sources) Corticosteroid, beta2-Adrenergic Agonist Start: 10-22-2023 Start: 10-22-2023 Fluticasone Pr opion-Salmeterol 100-50 mcg/dose blister with device Active 1 NMA INHALATION TWICE A DAY October 22, 2023 12:00am loratadine 10 mg oral tablet (1 source) take 1 tablet by mouth once daily loratadine 10 mg oral tablet ; tab(s) orally once a day Quantity: 0 Refills: 0 Ordered: 10-Apr-2021 Kayla Ahmadierine Generic Substitution Allowed losartan potassium 50 mg oral tablet (3 sources) Angiotensin 2 Receptor Steve Start: 4 take 1 tablet by mouth once daily pantoprazole 20 mg delayed release oral tablet (4 sources) Proton Pump Inhibitor Start: 4 take 1 tablet by mouth once daily take 1 tablet by mouth once elliott y pantoprazole 20 mg oral delayed release tablet ; 1 tab(s) orally once a day Quantity: 0 Refills: 0 Ordered: 10-Apr-2021 Kayla Ahmadierine Generic Substitution Allowed pravastatin sodium 40 mg oral tablet (4 sources) HMG-CoA Reductase Inhibitor Start: 10-22-2023 take 1 tablet by mouth at bedtime take 1 tablet by mouth once elliott y pravastatin 40 mg oral tablet ; 1 tab(s) orally once a day Quantity: 0 Refills: 0 Ordered: 10-Apr-2021 Susan Ahmadi Generic Substitution Allowed primidone 50 mg oral tablet (3 sources) Anti-epileptic Agent Start: 10-22-2023 take 1 tablet by mouth once Completed/Discontinued Medications Medication Drug Class(es) Dates Sig (Normalized) Sig (Original) esomeprazole 20 mg delayed release oral capsule (3 sources) Proton Pump Inhibitor Start: 08-16-2015 End: 10-22-2023 take 1 capsule by mouth once daily Esomeprazole Magnesium (Nexium) 20 MG capsule Discontinued 20 mg PO DAILY August 16, 2015 12:00am October 22, 2023 2:16pm lisinopril 5 mg oral tablet (4 sources) Angiotensin Converting Enzyme Inhibitor Start: 08-17-2015 End: 10-22-2023 take 1 tablet by mouth once daily Lisinopril 5 MG tablet Discontinued 5 mg PO DAILY 30 August 17, 2015 12:00am October 22, 2023 6:35pm take 1 tablet by mouth once elliott y lisinopril 10 mg oral tablet ; 1 tab(s) orally once a day Quantity: 0 Refills: 0 Ordered: 10-Apr-2021 Susan Ahmadi Generic Substitution Allowed 24 hr NIFEdipine 60 mg extended release oral tablet (4 sources) Dihydropyridine Calcium Channel Steve Start: 08-16-2015 End: 10-22-2023 take 1 tablet by mouth once daily Nifedipine 60 MG tablet extended release Discontinued 60 mg PO DAILY August 16, 2015 12:00am October 22, 2023 6:35pm zolpidem tartrate 5 mg oral tablet (3 sources) gamma-Aminobutyric Acid-ergic Agonist Start: 08-17-2015 End: 08-17-2015 take 1 tablet by mouth at bedtime as needed for sleep Zolpidem 5 MG tablet Discontinued 5 mg ORAL AT BEDTIME NEEDED as needed for SLEEP 10 0 August 17, 2015 12:00am August 17, 2015 4:51pm Problems Active Problems Problem Classification Problem Date Documented Da te Episodic/Chronic Aortic; peripheral; and visceral artery aneurysms (9 sources) Aneurysm of iliac artery; 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] Onset: 10-28-2024 10-22-2023 Chronic Comment on above: By U/S report from P omerene, bilateral 2.3 cm Chronic kidney disease (1 source) Chronic kidney disease; Translations: [Chronic kidney disease, stage 3a] Onset: 09-09-2024 Disorders of lipid metabolism (2 sources) Pure hypercholesterolemi a, unspecified; Translations: [Hyperlipidemia, unspecified] Onset: 09-09-2024 Chronic Esophageal disorders (1 source) Gastro-esophageal reflux disease without esophagitis; Translations: [Gastro-esophageal reflux disease without esophagitis] Onset: 03-11-2025 Chronic Essential hypertension (7 sources) Hypertensive disorder; Translations: [Essential (primary) hypertension] Onset: 05-27-2024 10-22-2023 Chronic Other lower respiratory disease (2 sources) Cough 04-10-2021 Episodic Comment on above: COUGH Other lower respiratory disease (1 source) Solitary pulmonary nodule; Translations: [Solitary pulmonary nodule] Onset: 03-17-2025 Episodic Other nervous system disorders (1 source) Polyneuropathy, unspecified; Translations: [Polyneuropathy, unspecified] Onset: 03-11-2025 Chronic Other nervous system disorders (1 source) Myasthenia gravis without (acute) exacerbation; Translations: [Myasthenia gravis without (acute) exacerbation] Onset: 02-15-2025 Chronic Other screening for suspected conditions (not mental disorders or infectious disease) (1 source) Other specified abnormal findings of blood chemistry; Translations: [Other specified abnormal findings of blood chemistry] Onset: 03-11-2025 Episodic Other upper respiratory infections (2 sources) Acute upper respiratory infection; Translations: [Acute upper respiratory infections of unspecified site] 04-10-2021 Episodic Thyroid disorders (1 source) Nontoxic single thyroid nodule; Translations: [Nontoxic single thyroid nodule] Onset: 03-16-2025 Chronic Unclassified (1 source) Abdominal aortic aneurysm, without rupture, unspecified; Translations: [Abdominal aortic aneurysm, without rupture, unspecified] Onset: 03-17-2025 Past or Other Problems Problem Classification Problem Date Documented Da te Episodic/Chronic Diabetes mellitus without complication (4 sources) Hyperglycemia, unspecified; Translations: [Hyperglycemia, unspecified] Onset: 05-27-2024 Episodic Results Test Name Value Interpretation Reference Range Facil ity Chest without Contraston Chest without Contrast [facility] Imaging Services [address] [place] [address] [id number] Chest without Contrast MR#: [id number] Acct: [id number] Name: ANASTACIO CORRIGAN Rep #: [id number] : 1940 M 84 From: Rogelio Belle MD PCP: Dr. Bill Fernández MD Status: REG CLI Study: Chest without Contrast Date of Exam: 02/09/25 Exam# [id number] Ordering Dr: FLAVIO LARA PROCEDURE: CHEST WITHOUT CONTRAST 02/09/2025 REASON FOR EXAM: MYASTHENIA GRAVIS TECHNIQUE: Chest CT without contrast. Coronal and Sagittal reconstruction series were provided. One or more dose reduction techniques were used (e.g., Automated exposure control, adjustment of the mA and/or kV according to patient size, use of iterative reconstruction technique RADIATION DOSE SUMMARY: CTDlvol: 13.5 mGy DLP: 489 mGycm FINDINGS: Hardware: None Thyroid: In the left thyroid there is a 3.2 by 2.2 cm hypodense nodule in the inferior pole. Lymph nodes: There are a few shotty lymph nodes seen within the mediastinum. No superior mediastinal mass identified. Heart and Vasculature: Mild cardiomegaly with trace amount of pericardial effusion. There is dilatation of the pulmonary arterial trunk measuring up to 3.5 cm. Atherosclerotic aorta demonstrated without aneurysmal dilatation. Coronary Artery Calcifications: Present Lungs and Airways: In the right upper lobe in the periphery is a slightly spiculated nodule measuring 1.1 x 0.8 cm best seen on image number 38 series 4. At the base of the right lower lobe near the periphery is a 2 mm pulmonary nodule best seen on image number 107. Pleura: Unremarkable. Upper Abdomen: There is left adrenal nodules measuring up to 1.7 cm with low-density 1 Hounsfield unit on noncontrast exam. Speckled calcifications demonstrated within the spleen and a few in the dome of the right liver. Bones: Degenerative changes demonstrated within the bones with spur formation. CT/Chest without Contrast IMPRESSION: No superior mediastinal mass identified. There is however a low-density nodule in the inferior pole of the left thyroid measuring up to 3.2 cm. Recommend further workup with ultrasound of the thyroid. Suspicious spiculated pulmonary nodule in the right upper lobe measuring up to 1.1 cm. Recommend further workup with PET-CT or CT-guided biopsy. Small nonspecific 2 mm pulmonary nodule is seen at the base of the right lower lobe. Left adrenal nodule likely an adrenal adenoma. Reading Location: [place] [address] CC: FLAVIO LARA; Dr. Bill Fernández MD Hand Tube Winder: Signed Normal [facility] ACETYLCHOLIN REC/MOD [CCL]on 12-16-2024 ACETYLCHOLIN REC/MOD [CCL] Normal [facility] Comment on above: Result Comment: _ACE TYLCHOLIN REC/MOD [CCL]_ SEE SCANNED REPORT Performed By: #### 2 [id number] #### [facility],[address] [place] [address] ACETYLCHOLINE RECEPTOR AB W/ REFLEX [CCL]on 12-16-2024 Acetylcholin Rec/Mod 94 % High <=45 [facility] Comment on above: Result Comment: Repe ated and Verified INTERPRETIVE INFORMATION: Acetylcholine Modulating Ab Negative .......... 0-45 percent modulating Positive .......... 46 percent or greater modulating Approximately 85-90 percent of patients with myasthenia gravis (MG) express antibodies to the acetylcholine receptor (AChR), which can be divided into binding, blocking, and modulating antibodies. Binding antibody can activate complement and lead to loss of AChR. Blocking antibody may impair binding of acetylcholine to the receptor, leading to poor muscle contraction. Modulating antibody causes receptor endocytosis resulting in loss of AChR expression, which correlates most closely with clinical severity of disease. Approximately 10-15 percent of individuals with confirmed myasthenia gravis have no measurable binding, blocking, or modulating antibodies. This test was developed and its performance characteristics determined by [facility]. It has not been cleared or approved by the [place] Food and Drug Administration. This test was performed in a CLIA certified laboratory and is intended for clinical purposes. Performed By: [facility] [address] [place] [address] [employer] Supervisor: Dharmesh Blankenship MD, PhD CLIA Number: [id number] [address] [address] Ramírez Hahn III, M.D. [id number] Performed By: #### 2 [id number] #### [facility],[address] [place] [address] ACETYLCHOL REC/BLOCK [CCL]on 12-13-2024 Acetylchol Rec/Block 63 %hibitio High <21 [facility] Comment on above: Result Comment: [facility] [address] [place] [address] Ramírez Hahn III, M.D. [id number] Performed By: #### 2 [id number] #### [facility],[address] [place] [address] Actylcholine Blck Ql Positive Abnormal Negative [facility] Comment on above: Result Comment: Anti -acetylcholine receptor blocking antibody test is used as an aid in diagnosis of myasthenia gravis. A negative result cannot exclude myasthenia gravis. Clinical correlation is required. Performed By: #### 2 [id number] #### [facility],[address] [place] [address] MR/BMSHeike 10-27-2024 MR/BMS.[facility] [address] [facility] [place] [address] OFFICE VISIT Date of Service: 10/27/24 MR#: [id number] Acct: [id number] Name: ANASTACIO CORRIGAN Rep #: [id number] : 1940 Provider: CEASAR Rosen Age/Sex: 84/M Location: [facility] Status: Signed Intake Vital Signs 08/19/16 10:39 10/27/24 14:51 Height 6 ft 1 in Weight: 206 lb BP 122/80 H Blood Pressure Location Lt brachial Position Sitting Respiration 16 Pulse 76 Pulse Source Monitor Temp 98.1 F Temp Source Temporal Pulse Oximetry (%) 98 Oxygen Delivery Method room air Intake Visit Reasons: 1 Y F/U Chief Complaint: establish care Is patient in pain?: No Allergies No Known Allergies Allergy (Verified 10/27/24 14:53) Medications ???Medication ???Instructions ???Recorded ???Confirmed ???Type amlodipine 10 mg tablet 10 mg PO DAILY 10/22/23 10/27/24 H istory fluoxetine 20 mg tablet 20 mg PO DAILY 10/22/23 10/27/24 H istory fluticasone 100 mcg-salmeterol 50 1 inh inhalation BID 10/22/23 History mcg/dose blistr powdr for inhalation losartan 50 mg tablet 50 mg PO DAILY 10/22/23 10/27/24 H istory pantoprazole 20 mg tablet,delayed 20 mg PO DAILY 10/22/23 10/27/24 History release pravastatin 40 mg tablet 40 mg PO QHS 10/22/23 10/27/24 His tory primidone 50 mg tablet 50 mg PO ONCE 10/22/23 10/27/24 Hi story Have you fallen in the past year?: No PFSH Medical History GERD (gastroesophageal reflux disease) Depression Anxiety Tremor, essential Reactive airway disease Hypertension Surgical History Hx of tonsillectomy ( 1954) Hx of appendectomy ( 1954) Family History Other Breast cancer CAD (coronary artery disease) Cancer Diabetes Social History Smoking Status: Never smoker HPI HPI HPI: ANASTACIO CORRIGAN, is a 84 M who presents to the office today for follow-up of iliac artery aneurysm initially identified on a screening aortic duplex at an outside facility 09/18/23 which revealed ectatic aorta (2.6 cm) and iliac arteries are noted to be tortuous and ectatic with maximum diameter 2.3 cm. He had repeat duplex on 10/22, official results not yet available. He denies any back/pelvic/lower extremity pain or claudication. He denies any prior vascular surgical interventions or wounds. He has never smoked. He is pre-diabetic. He does have significant peripheral neuropathy. He reports no significant changes to his health over the last year. ROS General General: No weight change, appetite, fatigue, colon cancer, breast cancer or weakness HEENT HEENT: Yes eye injury; No difficulty swallowing, eye surgery, swollen glands or hoarseness Endo Endocrine: No thyroid disease, diabetes mellitus, thyroid cancer, Hair loss, heat intolerance or cold intolerance Skin Skin: No rash or changing moles Musc Musculoskeletal: Yes back problems; No arthritis, rheumatoid arthritis, gout or joint pain Cardio Cardiovascular: Yes high blood pressure and shortness of breath with exertion; No murmur, pacemaker, heart disease, [...] No as per HPI, No abnormal gait, Yes abnormal hearing, No abnormal movements, No abnormal [...] HENMT Head: normal to inspection, normocephalic and atraumatic Ears: hearing grossly normal bilaterally and external ears normal Nose: external nose normal Eyes General: appearance normal, both eyes and (more content not included)... Normal [facility] Abd Aortic/IVC Duplex scanon 10-22-2024 Abd Aortic/IVC Duplex scan [facility] [address] [place] [address] Abd Aortic/IVC Duplex scan 10/22/24 0847 MR#: [id number] Acct: [id number] Name: ANASTACIO CORRIGAN Rep #: [id number] : 1940 84 From: Álvaro Mendiola MD Attending Dr: CEASAR Rosen Status: DEP CLI Ordering Dr: Leslie Rabago Date: 10/22/24 Location: [facility] Sex: M C Admitted: Reason For Study Reason For Study: ILIAC ARTERY ANEURYSM Aorta Measurements Aorta Doppler Measurements Proximal aorta measures2.13 x 2.09cm. in cross-sectional Peak systolic flow velocities within the proximal aorta axis. measure 128.5 cm/sec. Proximal aorta measures2.12cm. in longitudinal axis. Peak systolic flow velocities within the mid aorta measure Mid aorta measures2.34 x 2.62cm. in cross-sectional axis. 81.4 cm/sec. Mid aorta measures2.34cm. in longitudinal axis. Peak systolic flow velocities within the distal aorta Distal aorta measures3.05 x 3.19cm. in cross-sectional axis.measure 77.2 cm/sec. Distal aorta measures3.3cm. in longitudinal axis. Left Iliac Artery Left iliac artery measures 1.31 cm. in the longitudinal axis. Peak systolic velocity in the left iliac artery measures 112.2 cm/sec. Left iliac artery measures 1.52 x 1.17 cm. in the cross-sectional axis. Right Iliac Artery Right iliac artery measures 1.40 cm. in the longitudinal axis. Right iliac artery measures 1.20 x 1.07 cm. in the cross- sectional axis. Peak systolic velocity in the right iliac artery measures 114.0 cm/sec. Procedure Aorta IVC Iliac vasculature or bypass grafts 25397. Technically difficult study. Exam performed in department. 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 Left iliac artery patent, 1.52 cm ectasia present Ordering Physician: Leslie Rabago Referring Physician: Leslie Rabago Performed By: Elsa Jefferson, RDCS, RVT 11/01/24 1029 Date Álvaro Mendiola MD CC: CEASAR Rosen; DEFINED NOT Date Dictated: 10/22/24 0847 Date Transcribed: 11/01/24 1029 Hand Tube Winder: Signed Normal [facility] BMP with eGFRon 08-16-2024 AGE 84 years Normal [facility] Comment on above: Performed By: #### 2 [id number] #### [facility],[address] [place] [address] Anion gap [Moles/Vol] 11 mmol/L Normal 10 - 20 [facility] Comment on above: Performed By: #### 2 31761 #### [facility],[address] [place] [address] BMP with eGFR Normal [facility] Comment on above: Result Comment: BASI C METABOLIC PANEL Performed By: #### 2 02222 #### [facility],[address] [place] [address] Calcium [Mass/Vol] 9.0 mg/dL Normal 8.5 - 10.1 [facility] Comment on above: Performed By: #### 2 30894 #### [facility],[address] [place] [address] Chloride [Moles/Vol] 108 mmol/L High 98 - 107 [facility] Comment on above: Performed By: #### 2 95816 #### [facility],[address] [place] [address] CO2 [Moles/Vol] 30.3 mmol/L Normal 21.0 - 32.0 [facility] Comment on above: Performed By: #### 2 76436 #### [facility],[address] [place] [address] Creatinine [Mass/Vol] 1.33 mg/dL High 0.70 - 1.30 [facility] Comment on above: Performed By: #### 2 48103 #### [facility],[address] [place] [address]2265 eGFR 51 ML/MINUTE Low 60 - 999 [facility] Comment on above: Performed By: #### 2 73214 #### [facility],[address] [place] [address] GFR/1.73 sq M.predicted among non-blacks MDRD (S/P/Bld) [Vol rate/Area] mL/min/{1.73_m2} Normal 60 - 999 [facility] Comment on above: Result Comment: ACCO RDING TO THE NATIONAL KIDNEY DISEASE EDUCATION PROGRAM(NKDE), A NORMAL eGFR IS A VALUE GREATER THAN OR EQUAL TO 60 ML/MIN/1.73 SQ METERS. CHRONIC KIDNEY DISEASE: <60mL/MIN/1.73 SQ METERS KIDNEY FAILURE: <15mL/MIN/1.73 SQ METERS THIS TEST SHOULD ONLY BE USED FOR PATIENTS 18 YEARS OF AGE AND OLDER. Performed By: #### 2 72670 #### [facility],[address] [place] [address] Glucose [Mass/Vol] 99 mg/dL Normal 74 - 106 [facility] Comment on above: Performed By: #### 2 47620 #### [facility],[address] [place] [address] Potassium [Moles/Vol] 4.2 mmol/L Normal 3.5 - 5.1 [facility] Comment on above: Performed By: #### 2 99686 #### [facility],[address] [place] [address] Sodium [Moles/Vol] 145 mmol/L Normal 136 - 145 [facility] Comment on above: Performed By: #### 2 98413 #### [facility],[address] [place] [address] Urea nitrogen [Mass/Vol] 21 mg/dL High 7 - 18 [facility] Comment on above: Performed By: #### 2 13147 #### [facility],[address] [place] [address] HEMOGLOBIN A1C (POM)on 08-16 Glucose [Mass/Vol] 119.8 mg/dL High 0.0 - 0.0 [facility] Comment on above: Result Comment: BLDo HEMOGLOBIN A1C REFERENCE RANGESBLDo Suggested Diagnosis HbA1c(%) HbA1C (mmol/mol Diabetic >/=6.5 >/=48 Prediabetes 5.7 - 6.4 39 - 47 Normal <5.7 <39 Performed By: #### 2 16227 #### [facility],[address] [place] [address] HbA1c (Bld) [Mass fraction] 5.8 % Normal 0.0 - 6.5 [facility] Comment on above: Performed By: #### 2 63850 #### [place] [address] CBC + DIFFon 05-27-2024 Baso # 0.03 x10EE3/UL Normal 0.00 - 0.10 [facility] Comment on above: Performed By: #### 2 16393 #### [place] [address] Basophils/100 WBC (Bld) 0.3 % Normal 0.0 - 2.0 [facility] Comment on above: Performed By: #### 2 75373 #### [facility],[address] [place] [address] CBC + DIFF Normal [facility] Comment on above: Result Comment: CBC- COMPLETE BLOOD COUNT Performed By: #### 2 52533 #### [place] [address] EO # 0.81 x10EE3/UL High 0.00 - 0.50 [facility] Comment on above: Performed By: #### 2 10597 #### [place] [id number] Eosinophils/100 WBC (Bld) 8.9 % High 0.0 - 7.0 [facility] Comment on above: Performed By: #### 2 97001 #### [facility],[address] [place], [place] [id number] Erythrocyte distribution width (RBC) [Ratio] 13.1 % Normal 12.0 - 15.6 [facility] Comment on above: Performed By: #### 2 47591 #### [facility],[address] [place], [place] [id number] Hematocrit (Bld) [Volume fraction] 50.7 % Normal 40.0 - 52.0 [facility] Comment on above: Performed By: #### 2 13423 #### [facility],[address] [place] [address] Hemoglobin (Bld) [Mass/Vol] 17.1 g/dL Normal 13.0 - 17.5 [facility] Comment on above: Performed By: #### 2 37588 #### [facility],[address] [place] [address] Lymph # 3.79 x10EE3/UL High 0.80 - 2.80 [facility] Comment on above: Performed By: #### 2 73222 #### [facility],[address] [place], [place] [id number] Lymphocytes/100 WBC (Bld) 41.4 % Normal 20.0 - 45.0 [facility] Comment on above: Performed By: #### 2 24061 #### [facility],[address] [place] [address] MANUAL DIFF N/A Normal [facility] Comment on above: Performed By: #### 2 24560 #### [facility],[address] [place] [address] 78817 MCH (RBC) [Entitic mass] 32 pg Normal 27 - 33 [facility] Comment on above: Performed By: #### 2 10164 #### [facility],[address] [place] [address] MCHC 34 X10 3 Normal 32 - 36 [facility] Comment on above: Performed By: #### 2 22605 #### [facility],[address] [place] [address] MCV (RBC) [Entitic vol] 94 fL Normal 81 - 98 [facility] Comment on above: Performed By: #### 2 22800 #### [facility],[address] [place] [address] Hodgeman # 0.86 x10EE3/UL Normal 0.20 - 1.00 [facility] Comment on above: Performed By: #### 2 30789 #### [facility],[address] [place] [address] MONOS % 9.4 % Normal 0.0 - 10.0 [facility] Comment on above: Performed By: #### 2 29554 #### [facility],[address] [place] [address] Morphology Alvaro (Bld) [Interp] N/A Normal [facility] Comment on above: Performed By: #### 2 09314 #### [facility],[address] [place] [address] Neut # 3.66 x10EE3/UL Normal 1.50 - 7.10 [facility] Comment on above: Performed By: #### 2 15758 #### [facility],[address] [place] [address] Neutrophils/100 WBC (Bld) 40.0 % Low 46.0 - 76.0 [facility] Comment on above: Performed By: #### 2 75864 #### [facility],[address] [place] [address] PLATELET 314 x10EE3/UL Normal 150 - 450 [facility] Comment on above: Performed By: #### 2 31706 #### [facility],[address] [place] [address] Platelet mean volume (Bld) [Entitic vol] 8.0 fL Normal 6.4 - 10.5 [facility] Comment on above: Result Comment: AUTO MATED DIFFERENTIAL Performed By: #### 2 73962 #### [facility],[address] [place] [address] 11037 RBC 5.38 x 10EE6/UL Normal 4.50 - 6.00 [facility] Comment on above: Performed By: #### 2 66138 #### [facility],[address] [place] [address] 83484 WBC 9.2 x 10EE3/UL Normal 4.5 - 10.8 [facility] Comment on above: Performed By: #### 2 69435 #### [facility],[address] [place] [address] 99873 CMP with eGFRon 05-27-2024 AGE 83 years Normal [facility] Comment on above: Performed By: #### 2 26785 #### [facility],[address] [place] [address] 80981 Albumin [Mass/Vol] 3.7 g/dL Normal 3.4 - 5.0 [facility] Comment on above: Performed By: #### 2 77782 #### [facility],[address] [place] [address] 86432 Albumin/Globulin [Mass ratio] 1.0 {ratio} Normal 0.9 - 1.6 [facility] Comment on above: Performed By: #### 2 50776 #### [facility],[address] [place] [address] 91142 ALK PHOS 68 U/L Normal 46 - 116 [facility] Comment on above: Performed By: #### 2 23366 #### [facility],[address] [place] [address] 29384 ALT [Catalytic activity/Vol] 24 U/L Normal 16 - 63 [facility] Comment on above: Performed By: #### 2 40584 #### [facility],[address] [place] [address] 05714 Anion gap [Moles/Vol] 12 mmol/L Normal 10 - 20 [facility] Comment on above: Performed By: #### 2 49352 #### [facility],[address] [place] [address] 42775 AST [Catalytic activity/Vol] 23 U/L Normal 15 - 37 [facility] Comment on above: Performed By: #### 2 67936 #### [facility],[address] [place] [address] 36693 B/C RATIO 14 ratio Normal 0 - 30 [facility] Comment on above: Performed By: #### 2 31662 #### [facility],[address] [place] [address] 86602 Bilirubin [Mass/Vol] 0.5 mg/dL Normal 0.2 - 1.0 [facility] Comment on above: Performed By: #### 2 57673 #### [facility],[address] [place] [address] 82602 Calcium [Mass/Vol] 9.3 mg/dL Normal 8.5 - 10.1 [facility] Comment on above: Performed By: #### 2 52983 #### [facility],[address] [place] [address] 67724 Chloride [Moles/Vol] 106 mmol/L Normal 98 - 107 [facility] Comment on above: Performed By: #### 2 66961 #### [facility],[address] [place] [address] 96493 CMP with eGFR Normal [facility] Comment on above: Result Comment: COMP REHENSIVE METABOLIC PANEL Performed By: #### 2 62289 #### [facility],[address] [place] [address] 58123 CO2 [Moles/Vol] 30.7 mmol/L Normal 21.0 - 32.0 [facility] Comment on above: Performed By: #### 2 05177 #### [facility],[address] [place] [address] 95352 Creatinine [Mass/Vol] 1.20 mg/dL Normal 0.70 - 1.30 [facility] Comment on above: Performed By: #### 2 59001 #### [facility],[address] [place] [address] 57198 eGFR 58 ML/MINUTE Low 60 - 999 [facility] Comment on above: Performed By: #### 2 58009 #### [facility],[address] [place] [address] 68398 GFR/1.73 sq M.predicted among non-blacks MDRD (S/P/Bld) [Vol rate/Area] mL/min/{1.73_m2} Normal 60 - 999 [facility] Comment on above: Result Comment: ACCO RDING TO THE NATIONAL KIDNEY DISEASE EDUCATION PROGRAM(NKDE), A NORMAL eGFR IS A VALUE GREATER THAN OR EQUAL TO 60 ML/MIN/1.73 SQ METERS. CHRONIC KIDNEY DISEASE: <60mL/MIN/1.73 SQ METERS KIDNEY FAILURE: <15mL/MIN/1.73 SQ METERS THIS TEST SHOULD ONLY BE USED FOR PATIENTS 18 YEARS OF AGE AND OLDER. Performed By: #### 2 15039 #### [facility],[address] [place] [address] 88300 Globulin (S) [Mass/Vol] 3.7 g/dL Normal 1.5 - 3.8 [facility] Comment on above: Performed By: #### 2 02604 #### [facility],[address] [place] [address] 15618 Glucose [Mass/Vol] 120 mg/dL High 74 - 106 [facility] Comment on above: Performed By: #### 2 71276 #### [facility],[address] [place] [address] 44431 Potassium [Moles/Vol] 3.7 mmol/L Normal 3.5 - 5.1 [facility] Comment on above: Performed By: #### 2 59772 #### [facility],[address] [place] [address] 23335 Protein [Mass/Vol] 7.4 g/dL Normal 6.4 - 8.2 [facility] Comment on above: Performed By: #### 2 60333 #### [facility],[address] [place] [address] 10644 Sodium [Moles/Vol] 145 mmol/L Normal 136 - 145 [facility] Comment on above: Performed By: #### 2 50104 #### [facility],[address] [place] [address] 02484 Urea nitrogen [Mass/Vol] 17 mg/dL Normal 7 - 18 [facility] Comment on above: Performed By: #### 2 88855 #### [facility],[address] [place] [address] 55695 HEMOGLOBIN A1C (POM)on 05-27 Glucose [Mass/Vol] 137.0 mg/dL High 0.0 - 0.0 [facility] Comment on above: Result Comment: BLDo HEMOGLOBIN A1C REFERENCE RANGESBLDo Suggested Diagnosis HbA1c(%) HbA1C (mmol/mol Diabetic >/=6.5 >/=48 Prediabetes 5.7 - 6.4 39 - 47 Normal <5.7 <39 Performed By: #### 2 57369 #### [facility],[address] [place] [address] 99052 HbA1c (Bld) [Mass fraction] 6.4 % Normal 0.0 - 6.5 [facility] Comment on above: Performed By: #### 2 55568 #### [facility],[address] [place] [address] 43324 LIPID PROFILEon 05-27-2024 Cholesterol [Mass/Vol] 181 mg/dL Normal 0 - 240 [facility] Comment on above: Performed By: #### 2 34453 #### [facility],[address] [place] [address] 42415 Cholesterol in HDL [Mass/Vol] 49 mg/dL Normal 40 - 60 [facility] Comment on above: Performed By: #### 2 09067 #### [facility],[address] [place], [place] [address] Cholesterol in LDL [Mass/Vol] 102 mg/dL Normal 0 - 129 [facility] Comment on above: Performed By: #### 2 46400 #### [facility],[address] [place] [address] 38024 Cholesterol.total/C holesterol in HDL [Mass ratio] 3.7 {ratio} Normal 0.0 - 5.0 [facility] Comment on above: Performed By: #### 2 00629 #### [facility],[address] [place] [address] 80060 Lipid 1996 panel Normal [facility] Comment on above: Result Comment: LIPI D PROFILE Performed By: #### 2 95359 #### [facility],[address] [place], [place] [address] Triglyceride [Mass/Vol] 149 mg/dL Normal 0 - 150 [facility] Comment on above: Performed By: #### 2 45362 #### [facility],[address] [place], [place] [address] Provider Note - ED v2on 11-3 Provider [...] SIGNS: T PRBP SpO2O2(LPM) %FiO2 Method 10-Apr-2021 14:01:[id number] 97 MEDICAL DECISION MAKING/ED COURSE MDM/ED COURSE: [...] normal strength, no tenderness, no swelling. Integumentary: [place], warm, dry, and Intact. Neurologic: Alert, Oriented, [...] ill patient: no Electronic Signatures: Olivier Sutton ([employer]) (Signed 10-Apr-2021 14:16) Authored: HPI, PMH, PE, Results/Vital Signs, MDM/ED Course, Clinical Impression, Attestation, Chart Review, Scores Last Updated: 10-Apr-2021 14:16 by Olivier Sutton ([employer]) [facility] Vital Signs Date Time Vital Sign Value Performing Clinician Lee Ann macias 10-27-2024 14:51-0400 Body temperature 98.1 [degF] Leslie Rabago PA Work Phone: [facility] 10-27-2024 14:51-0400 Body weight 93.44 kg Leslie Rabgao PA Work Phone: [facility] 10-27-2024 14:51-0400 Diastolic blood pressure 80 mm[Hg] Leslie Rabago PA Work Phone: [facility] 10-27-2024 14:51-0400 Heart rate 76 /min Leslie Rabago PA Work Phone: [facility] 10-27-2024 14:51-0400 Respiratory rate 16 /min Leslie Rabago PA Work Phone: [facility] 10-27-2024 14:51-0400 SaO2% (BldA) [Mass fraction] 98 % Leslie Rabago PA Work Phone: [facility] 10-27-2024 14:51-0400 Systolic blood pressure 122 mm[Hg] Leslie Rabago PA Work Phone: [facility] 04-10-2021 16:01-0500 Body height 185.4 cm Text Entry [facility] 04-10-2021 16:01-0500 Body temperature 98.6 [degF] Text Entry [facility] 04-10-2021 16:01-0500 Diastolic blood pressure 108 mm[Hg] Text Entry [facility] 04-10-2021 16:01-0500 Heart rate 66 /min Text Entry [facility] 04-10-2021 16:01-0500 Respiratory rate 16 /min Text Entry [facility] 04-10-2021 16:01-0500 SaO2% (BldA) [Mass fraction] 97 % Text Entry [facility] 04-10-2021 16:01-0500 Systolic blood pressure 206 mm[Hg] Text Entry [facility] Encounters Encounter Date Encounter Type Care Provider Facility Start: 03-22-2025 ambulatory [facility] Facility: [facility] Start: 03-21-2025 ambulatory [facility] Facility: [facility] Start: 03-18-2025 ambulatory [facility] Facility: [facility] Start: 03-17-2025 Encounter for other preprocedural examination Chelsy Enriquez [facility] Start: 03-11-2025 ambulatory [facility] Facility: [facility] Start: 02-09-2025 End: 02-09-2025 ambulatory Leslie MCDONOUGH Work Phone: -[facility] Start: 02-09-2025 End: 02-09-2025 Patient encounter procedure Leslie MCDONOUGH Work Phone: -[facility] Work Phone: Start: 02-09-2025 End: 02-09-2025 ambulatory ELISA HARVEY Facility:[facility] Start: 12-13-2024 ambulatory [facility] Start: 12-11-2024 End: 12-11-2024 ambulatory [facility] Start: 10-27-2024 End: 10-27-2024 Patient encounter procedure Leslie MDCONOUGH -[facility] Work Phone: Start: 10-27-2024 End: 10-27-2024 ambulatory Leslie MCDONOUGH Work Phone: [facility] Work Phone: Start: 10-22-2024 Non-patient / Non-visit Dr. Álvaro jeronimo MD -[facility] Start: 10-22-2024 End: 10-22-2024 ambulatory Leslie MCDONOUGH Work Phone: [facility] Work Phone: Start: 10-22-2024 End: 10-22-2024 Patient encounter procedure Leslie MCDONOUGH -[facility] Work Phone: Start: 10-22-2024 End: 10-22-2024 ambulatory DEFINED NOT Facility:[facility] Start: 09-09-2024 [facility] Start: 08-16-2024 End: 08-16-2024 ambulatory BILL TALLEY [facility] Start: 05-27-2024 End: 05-27-2024 ambulatory BILL TALLEY [facility] Start: 04-10-2021 End: 04-10-2021 Emergency department patient visit Olivier Sutton [facility] 01 Procedures Date Procedure Procedure Detail Performing Clinician Start: 02-09-2025 CT of chest without contrast Leslie MCDONOUGH Work Phone: Plan of Treatment Date Care Activity Detail Author CT Abdomen and Pelvis [facility] Immunizations Immunization Date Immunization Notes Care Provider Mushtaq carballo 03-13-2015 Influenza virus vaccine Efra jessica MCDONOUGH Work Phone: [facility] Payers Date Payer Category Payer Unknown [id number] 2024 Self-pay 2023 Unknown [id number] 2015 Medicare [employer] MEDICARE PPO [id number] 1940 Unknown [id number] 51 1942 Unknown [id number] [id number] 51 1942 Unknown [id number] [id number] 51 1942 Unknown [id number] [id number] 51 1942 Unknown [id number] [id number] 51 Unknown [employer] GOLD CHOICE\[employer] GOLD CHOICE Private Health Insurance [id number] Unknown [id number] [id number] 62 Unknown [id number] [id number] 62 Unknown [id number] [id number] 62 Unknown [id number] [id number] 62 Unknown [id number] [id number] 62 Unknown [id number] [id number] 62 Unknown [id number] [id number] 62 Unknown [id number] 62 Social History Date Type Detail Facility [facility] Tobacco smoking consumption unknown [facility] Start: 08-19-2016 Tobacco smoking status NHIS Never smoked tobacco (finding) [facility] Start: 1940 Sex Assigned At Male W [facility] Sex Male [facility] Radiology Diagnostic study note 02-11-2025 Note Date & Type Note Facility 02-11-2025 Radiology Diagnostic study note [facility] [address] [place], [place] [address] Chest without Contrast MR#: [id number] Acct: [id number] Name: SHEKHARANASTACIODIANNA HURTADO Rep #: [id number] : 1940 M 84 From: Vicky Belle MD PCP: Dr. Bill Fernández MD Status: REG CLI Study:Chest without Contrast Date of Exam: 02/09/25 Exam# [id number] Ordering Dr: FLAVIO GARDINER PROCEDURE: CHEST WITHOUT CONTRAST 02/09/2025 REASON FOR EXAM: MYASTHENIA GRAVIS TECHNIQUE: Chest CT without contrast. Coronal and Sagittal reconstruction series were provided. One or more dose reduction techniques were used (e.g., Automated exposure control, adjustment of the mA and/or kV according to patient size, use of iterative reconstruction technique RADIATION DOSE SUMMARY: CTDlvol: 13.5 mGy DLP: 489 mGycm FINDINGS: Hardware: None Thyroid: In the left thyroid there is a 3.2 by 2.2 cm hypodense nodule in the inferior pole. Lymph nodes: There are a few shotty lymph nodes seen within the mediastinum. Nosuperior mediastinal mass identified. Heart and Vasculature: Mild cardiomegaly with trace amount of pericardial effusion. There is dilatation of the pulmonary arterial trunk measuring up to 3.5 cm. Atherosclerotic aorta demonstrated without aneurysmal dilatation. Coronary Artery Calcifications: Present Lungs and Airways: In the right upper lobe in the periphery is a slightly spiculated nodule measuring 1.1 x 0.8 cm best seen on image number 38 series 4. At the base of the right lower lobe near the periphery is a 2 mm pulmonary nodule best seen on image number 107. Pleura: Unremarkable. Upper Abdomen: There is left adrenal nodules measuring up to 1.7 cm with low-density 1 Hounsfield unit on noncontrast exam. Speckled calcifications demonstrated within the spleen and a few in the dome of the right liver. Bones: Degenerative changes demonstrated within the bones with spur formation. CT/Chest without Contrast IMPRESSION: No superior mediastinal mass identified. There is however a low-density nodule in the inferior pole of the left thyroid measuring up to 3.2 cm. Recommend further workup with ultrasound of the thyroid. Suspicious spiculated pulmonary nodule in the right upper lobe measuring up to 1.1 cm. Recommend further workup with PET-CT or CT-guided biopsy. Small nonspecific 2 mm pulmonary nodule is seen at the base of the right lower lobe. Left adrenal nodule likely an adrenal adenoma. Reading Location: [place] [address] CC: FLAVIO LARA; Dr. Bill Fernándze MD ~ Hand Tube Winder: Signed [facility] Evaluation note 10-27-2024 Note Date & Type Note Facility 10-27-2024 Evaluation note Diagnosis Onset Date Resolution Iliac artery aneurysm acute Raad e 2024 2:34pm [facility] Work Phone: Evaluation note 10-27-2024 Note Date & Type Note Facility 10-27-2024 Evaluation note Diagnosis Onset Date Resolution AAA (abdominal aortic aneurysm) acute October 27, 2024 2:34pm Iliac artery aneurysm acute Raad e 2024 2:34pm [facility] Work Phone: Evaluation note Note Date & Type Note Facility Evaluation note Diagnosis Onset Date Resolution Iliac artery aneurysm acute Raad e 2024 2:34pm [facility] Work Phone: Reason for referral (narrative) Note Date & Type Note Facility Reason for referral (narrative) No reason for referral information available [facility] Work Phone: Summary Purpose Family History No Family History Records Found Relationship Condition Age at Onset Recorded Date/T jolene Not Specified Diabetes mellitus Unknown Coronary artery disease Unknown Malignant neoplasm of breast Unknown Malignant neoplasm Unknown Advance Directives No Advanced Directives Records Found Advance Directive Response Recorded Date/ Time Living Will No August 19, 2016 10:39am Do you have a Healthcare Power of Nozzle Tender? No August 19, 2016 10:39am Advance Directives No August 15 1:03pm Chief Complaint and Reason for Visit Chief Complaint Admit Date ANEURYSM October 22, 2024 8:37 am 1 Y F/U October 27, 2024 2:34 pm Reason for Visit Admit Date Iliac artery aneurysm October 27, 2024 2: 34pm Chief Complaint Admit Date ANEURYSM October 22, 2024 8:37 am 1 Y F/U October 27, 2024 2:34 pm Myasthenia gravis without (acute) exacer bation February 09, 2025 6:02pm Reason for Visit Admit Date AAA (abdominal aortic aneurysm) October 2:34pm Iliac artery aneurysm October 27, 2024 2: 34pm Additional Source Comments <item> Privacy Markings (unrecogniz ed section and content) Section Author: Lisa Larios PROHIBITION ON REDISCLOSURE OF CONFIDENTIAL INFORMATION This notice accompanies a disclosure of information concerning a client made to you with the consent of such client. (unrecognized sect ion and content) No Status Records FoundNo Status Records FoundNo Status Records Found INFORMATION SOURCE (unrecogn ized section and content) DATE CREATED AUTHOR 04/14/2021 [facility] DATE CREATED AUTHOR AUTHOR'S ORGANIZ ATION 12/19/2024 [facility] DATE CREATED AUTHOR AUTHOR'S ORGANIZ ATION 03/18/2025 [facility] Care Teams (unrecognized sec tion and content) Team Status: Active Member Role Status Dates Dr. Jaquan Victor MD Primary Care Provider Active Team Status: Inactive Member Role Status Dates CEASAR Rosen Attending Provider Active Star t: October 22, 2024 End: October 22, 2024 CEASAR Rosen Referring Provider Active Star t: October 22, 2024 End: October 22, 2024 DEFINED NOT Primary Care Provider Active Start: October 22, 2024 End: October 22, 2024 Team Status: Inactive Member Role Status Dates Dr. Jaquan Victor MD Primary Care Provider Active Start: October 27, 2024 End: October 27, 2024 Dr. Jaquan Victor MD Referring Provider Active Start: October 27, 2024 End: October 27, 2024 CEASAR Rosen Attending Provider Active Star t: October 27, 2024 End: October 27, 2024 Team Status: Active Member Role Status Dates CEASAR Rosen Attending Provider Active Star t: October 22, 2024 CEASAR Rosen Referring Provider Active Star t: October 22, 2024 DEFINED NOT Primary Care Provider Active Start: October 22, 2024 Team Status: Active Member Role/Relationship Status Dates Dr. Bill Fernández MD Primary care physician Active Team Status: Inactive Member Role/Relationship Status Dates CEASAR Rosen Attending physician Active Sta rt: October 22, 2024 End: October 22, 2024 CEASAR Rosen Referring Provider Active Star t: October 22, 2024 End: October 22, 2024 DEFINED NOT Primary care physician Active Start : October 22, 2024 End: October 22, 2024 Team Status: Active Member Role/Relationship Status Dates Dr. Jaquan Victor MD Primary care physician Active Start: October 22, 2024 Dr. Álvaro Mendiola MD Attending physician Active Start: October 22, 2024 CEASAR Rosen Referring Provider Active Star t: October 22, 2024 Team Status: Inactive Member Role/Relationship Status Dates Dr. Jaquan Victor MD Primary care physician Active Start: October 27, 2024 End: October 27, 2024 Dr. Jaquan Victor MD Referring Provider Active Start: October 27, 2024 End: October 27, 2024 CEASAR Rosen Attending physician Active Sta rt: October 27, 2024 End: October 27, 2024 Team Status: Inactive Member Role/Relationship Status Dates MARCO MUNIZ Attending physician Active St art: February 09, 2025 End: February 09, 2025 MARCO MUNIZ Referring Provider Active Sta rt: February 09, 2025 End: February 09, 2025 Dr. Bill Fernández MD Primary care physician Active Start: February 09, 2025 End: February 09, 2025 Goals (unrecognized section and content) Goals may be documented in a n alternate sectionGoals may be documented in an alternate sectionGoals may be documented in an alternate section FOR RECORDS PERTAINING TO PATIENTS WHO ARE [...] BE BASED ON THE PRIMARY CLINICAL RECORDS. [employer] [facility]. provides no warranty or guarantee of the accuracy or completeness of information in this document.
--- NOTE | 2025-03-18 08:26 | CT_ITS ---
PROCEDURE: BIOPSY/INJ OR NEEDLE PLACEMENT 03/18/2025 REASON FOR EXAM: GENERALIZED MYSATHENIA GRAVIS TECHNIQUE: Procedure Code: CTBX Modality: CT Procedure: CT-guided core biopsy a lateral right upper lobe spiculated nodule. One or more dose reduction techniques were used (e.g., Automated exposure control, adjustment of the mA and/or kV according to patient size, use of iterative reconstruction technique. RADIATION DOSE SUMMARY: DLP: 3491.92 mGycm. COMPARISON: Chest CT of 02/09/2025.. FINDINGS: Conscious sedation was employed for this procedure, with start time of 1009 hours and stop time of 1044 hours. Intravenous administration of a total of 2 mg Versed and 25 mcg fentanyl. Procedure: Following informed consent, and using standard sterile technique, a CT-guided core biopsy of the lateral right upper lobe spiculated nodule was performed. 2% lidocaine local anesthesia was followed by placement of a 20 cm 20 gauge CorVocet core biopsy system. 4 samples were then obtained. Immediate postprocedure images showed no pneumothorax or other significant complication. Follow up chest x-rays are planned. CT/Biopsy/Inj or Needle Placement IMPRESSION: Successful CT-guided core biopsy of a lateral right upper lobe spiculated nodul e. Pathology results pending. Reading Location: [place] [id number]
--- NOTE | 2025-03-18 08:36 | CT_ITS ---
PROCEDURE: CTA ABD/PELVIS W/WO CONTRAST 03/18/2025 REASON FOR EXAM: AAA AND BILAT ILIAC ARTERY ANEURYSM TECHNIQUE: Procedure Code: [id number] Modality: CT Procedure: CTA ABD/PELVIS W/WO CONTRAST Multiplanar Sagittal and Coronal images were obtained. 3D and or MIPS post processing was performed CONTRAST: Isovue-300 VOLUME: 100 mL One or more dose reduction techniques were used (e.g., Automated exposure control, adjustment of the mA and/or kV according to patient size, use of iterative reconstruction technique). RADIATION DOSE SUMMARY: CTDlvol: 13.4 mGy DLP: 705.97 mGycm COMPARISON: None FINDINGS: Aorta: Infrarenal saccular aneurysmal dilatation measuring 3.2 cm in transverse dimension. There is evidence of mural calcification as well as mural thrombus. Iliac Arteries: Ectasia of the common iliac arteries bilaterally although no focal aneurysm is seen. The right common iliac artery measures 13.8 mm in transverse dimension. The left common iliac artery measures 16.2 mm in transverse dimension. Celiac: Unremarkable SMA: Minimal non stenotic plaque at the origin. SHER : Unremarkable Right Renal: Minimal atherosclerotic plaque Left Renal: Minimal atherosclerotic plaque at its origin. Extravascular Findings: Diffuse fatty infiltration of the liver. The gallbladder is unremarkable. Spleen and pancreas are unremarkable as well. I suspect a 15.8 mm left adrenal gland adenoma. CT/CTA Abd/Pelvis W/WO Contrast IMPRESSION: Saccular infrarenal abdominal aortic aneurysm with a transverse dimension of 3. 2 cm. Mural thrombus is seen. Ectasia of the right common iliac artery measuring 13.8 mm in transverse dimens ion. Ectasia of the left common iliac artery measuring 16.2 mm in transverse dimension. Reading Location: [id number]
[2025-03-18 08:43] LABS: Hematocrit 41.4 % (40-54); Hemoglobin 13.1 g/dL (13.0-16.5); Immature Granulocytes Count 0.090 X10^3/uL (0.0-0.0); Mean Corp Hgb Conc 31.6 g/dL (32-36); Mean Corpuscular Volume 87.2 fL (80-94); Mean Platelet Vol. 9.5 fl (6.2-12.0); NRBC Flagged by Analyzer 0 % (0-5); Platelet Count 281 K/mm3 (150-450); RBC Distribution Width CV 13.5 % (11.6-14.6); RBC Distribution Width SD 43.2 fl (35.1-43.9); Red Blood Count 4.75 M/mm3 (4.6-6.2); White Blood Count 13.4 K/mm3 (4.4-11.0)
[2025-03-18 08:52] LABS: Prothrombin Time (Protime)PT. 13.1 SECONDS (11.7-14.9)
[2025-03-18 08:53] LABS: Partial Thromboplast Time 22.1 Seconds (24.1-36.2)
[2025-03-18 09:11] LABS: CREATININE FINGERSTICK < 1.0 mg/dL (0.70-1.30); EGFR FINGERSTICK > 60.0000 mL/min (>60)
[2025-03-18] MEDS: Midazolam 2 MG/2 ML Syringe IV ×2 (10:09→10:14)
[2025-03-18] MEDS: 0.9% Normal Saline (250mL Bag) 250 ML 15 ML IV (10:12)
[2025-03-18] MEDS: fentaNYL 100 MCG/2 ML Ampul IV (10:12)
[2025-03-18] MEDS: Lidocaine 2% (20 ml mdv) 20 ML Vial INFILT (10:14)
--- NOTE | 2025-03-18 11:10 | US_ITS ---
PROCEDURE: THYROID 03/18/2025 REASON FOR EXAM: THYROID NODULE TECHNIQUE: Procedure Code: USTHY Modality: US Procedure: THYROID COMPARISON: None FINDINGS: Right thyroid lobe size: 5.2 cm x 1.7 cm 1.6 cm Left thyroid lobe size: 6.3 cm x 2.1 cm 2.2 cm Isthmus: 0.3 cm Background parenchymal echotexture is homogeneous. Nodules: . Lobe: Right, Location: Upper pole, Size: 0.5 cm 0.5 cm by 0.3 cm, Stability: N/A Composition: Solid or almost completely solid (+2) Echogenicity: Hyper to Isoechoic (+1) Margin: Smooth (+0) Shape: Wider than tall (+0) Echogenic Foci: None (+0) TI-RADS: 3 . Lobe: Left, Location: Inferior pole, Size: 3 cm x 2.5 cm x 2.5 cm, Stability: N/A Composition: Mixed cystic and solid (+1) Echogenicity: Hypoechoic (+2) Margin: Smooth (+0) Shape: Wider than tall (+0) Echogenic Foci: None (+0) TI-RADS: 3 There is an 8 mm x 7 mm x 6 mm heterogeneous solid nodule in the midpole of the left lobe. Tie rads category 3. US/Thyroid IMPRESSION: Dominant 3 cm x 2.5 cm 2.5 cm complex cystic nodule in the inferior pole of the left lobe of the thyroid. Biopsy RECOMMENDATION: Based on most suspicious nodule. Nodule size = largest diameter Only evaluate nodule if =>5 mm. Growth > 20% in 2 dimensions = worsening. Follow up to 4 nodules. Recommend biopsy for no more than 2 nodules. Reading Location: [id number]
--- NOTE | 2025-03-18 11:35 | RAD_ITS ---
PROCEDURE: CHEST INSP/EXP 2 VIEW 03/18/2025 REASON FOR EXAM: POST LUNG BIOPSY TECHNIQUE: Procedure Code: [id number] Modality: DX Procedure: CHEST INSP/EXP 2 VIEW Portable upright inspiration expiration views. COMPARISON: February 09, 2025 FINDINGS: Biopsy was performed of the right upper lobe lung lesion. Some scarring a minimal ground-glass is seen in the vicinity of the lesion. Visceral pleural line is seen at the lung apex those retracted from the chest wall approximately 2-3 mm. This is minimal. Otherwise, the lungs are clear. There is no pleural effusion. No pneumothorax is seen in the left. Heart is normal size. RAD/Chest Insp/Exp 2 View IMPRESSION: Minimal right apical pneumothorax following recent biopsy. Red Alert: Pneumothorax The critical findings in the findings and impression above were relayed directl y by me by telephone to Brad Brooke on 03/18/2025 at 12:05 pm with readback verification. Reading Location: [id number]
--- NOTE | 2025-03-18 13:00 | RAD_ITS ---
PROCEDURE: CHEST INSP/EXP 2 VIEW 03/18/2025 REASON FOR EXAM: POST LUNG BIOPSY TECHNIQUE: Procedure Code: [id number] Modality: DX Procedure: CHEST INSP/EXP 2 VIEW COMPARISON: Prior chest x-ray of earlier the same day RAD/Chest Insp/Exp 2 View IMPRESSION: A tiny right apical pneumothorax is again seen, not increased since the earlier examination. Lungs otherwise appear unchanged. No pleural effusion is evident. The cardiomediastinal silhouette is stable, without evidence of cardiomegaly. Reading Location: [place] [id number]
--- NOTE | 2025-03-18 13:58 | NURSING ---
Pt states family is coming to get him. He insists on waiting in the waiting room for family to arrive. Pt has assured DANIEL Betancur that he has family coming to get him and that he will not drive or operate any heavy machinery for 24 hours after procedure. Pt is informed he has a very tiny pneumothorax and he should go to the closest hospital if he becomes short of breath or has chest pain. Pt denies questions.
== END 2025-03-18 23:59 | disposition home or self-care (01) ==
PROVIDERS: Radiology Nuclear Radiology; PCP Nurse Practitioner Primary Care; Referring Provider Nurse Practitioner Primary Care; Visit Provider Nurse Practitioner Primary Care
DX: C34.11 Malignant neoplasm of upper lobe, right bronchus or lung (principal); G70.00 Myasthenia gravis without (acute) exacerbation; E04.1 Nontoxic single thyroid nodule; I71.40 Abdominal aortic aneurysm, without rupture, unspecified; I72.3 Aneurysm of iliac artery
CPT/HCPCS: 32408; 71046; 74174; 76536; 77012; 85025; 85610; 85730; 88172; 88305; 88313; 88341; 88342; 99156; 99157; Q9967; A4216

== ENCOUNTER → 2025-04-27 | Outpatient (CLI) | payer MEDICARE, SELFPAY ==
--- NOTE | 2025-04-27 09:40 | CYSPIN_PTH ---
PATIENT: ANASTACIO CORRIGAN LOC: [facility] U#:[id number] AGE/SX: 84/M ROOM: RE04/27/[address]: Dr. Olivier Caputo MD : 1940 BED: DIS: 04/27/2025 SPEC #: [id number] RECD: 04/27/25 10:07 STATUS: PIETER REFrancisco Javier #: [id number] ANTONINO: 04/27/25 09:[address]: Olivier Caputo DEPT: CYTOLOGY RECD BY: Donavan Daniels ENTERED: 04/27/25 10:44 SP TYPE: CYSPIN FL OTHR DR: Chelsy Enriquez NP Tissues: A - Thyroid gland, NOS Procedures: Pap Stain (control) Special Stain Group II Diff Quik Stain (control) Cytospin Fluid Cytology Other HEADER OPERATION: Fine needle aspiration of left thyroid nodule PRE-OP DIAGNOSIS: Left thyroid nodule TISSUE SUBMITTED: A- Left thyroid nodule for cytology DIAGNOSIS CYTOLOGY A. Left thyroid nodule, FNA: * No malignant cells are identified * Benign (consistent with benign follicular nodule) CYTOLOGY STUDY Slides are reviewed. CYTOLOGY GROSS A. Received is 30 ml of red-cloudy cytolyt with 4 smears labeled with the patient's name and and designated per the requisition as Left thyroid nodule. Submitted for cytology and cytospin. Mr 04/27/2025 CPT: 77122,65354
== END | disposition home or self-care (01) ==
LOC: LAB 10:25 → LABSPEC 10:25
PROVIDERS: PCP Nurse Practitioner Primary Care; Referring Provider Surgery; Visit Provider Surgery
DX: E04.1 Nontoxic single thyroid nodule (principal)
CPT/HCPCS: 88108; 88161; 88313

== ENCOUNTER → 2025-04-28 | Outpatient (CLI) | payer MEDICARE, SELFPAY ==
--- NOTE | 2025-04-28 11:32 | MRI_ITS ---
PROCEDURE: MRI BRAIN W/WO CONTRAST 04/28/2025 REASON FOR EXAM: STAGING-LUNG CA TECHNIQUE: Procedure Code: [id number] Modality: MR Procedure: BRAIN W/WO CONTRAST Multiplanar and multisequence images were obtained. CONTRAST: Clariscan VOLUME: 20 mL COMPARISON: None available. FINDINGS: No intracranial mass lesion or foci of pathologic enhancement suspicious for metastatic disease. 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 No intracranial hemorrhage or extra-axial collection. No abnormal restricted diffusion. Mild age-appropriate generalized brain parenchymal volume loss. Multiple scattered patchy foci of T2 FLAIR hyperintensity in the supratentorial white matter, nonspecific but most likely related to mild chronic microangiopathic changes. Preserved major intracranial vascular flow voids. Absent afognak ocular lenses. Mild peripheral mucosal thickening throughout the paranasal sinuses. No mastoid effusions. No suspicious marrow lesion appreciated in the skull base or calvarium. MRI/Brain W/WO Contrast IMPRESSION: No acute intracranial abnormality or evidence for metastatic disease. Mild parenchymal volume loss and chronic microangiopathic changes. Reading Location: [id number]
--- NOTE | 2025-04-28 12:10 | RAD_ITS ---
PROCEDURE: ORBITS FOR FOREIGN BODY 04/28/2025 REASON FOR EXAM: CLEARANCE FOR MRI TECHNIQUE: Procedure Code: [id number]. Modality: DX Procedure: ORBITS FOR FOREIGN BODY, two views. COMPARISON: None. RAD/Orbits for Foreign Body IMPRESSION: No intraorbital metal is seen. The visualized paranasal sinuses and mastoid air cells appear clear. No acute osseous process is noted. Reading Location: [place] [id number]
[2025-04-28 12:31] LABS: Free T3 3.3 pg/mL (2.18-3.98); T4 Total, Thyroxin 6.1 ug/dL (4.5-12.1)
== END | disposition home or self-care (01) ==
PROVIDERS: Surgery; PCP Nurse Practitioner Primary Care; Referring Provider Internal Medicine Medical Oncology; Visit Provider Internal Medicine Medical Oncology
DX: C34.11 Malignant neoplasm of upper lobe, right bronchus or lung (principal); E04.2 Nontoxic multinodular goiter
CPT/HCPCS: 36415; 70030; 70553; 84436; 84443; 84481; A9575